=== PATIENT | female | born 1955 | race Caucasian/White ===

== ENCOUNTER 2017-06-22 11:52 | Inpatient (IN) ==
--- NOTE | 2017-06-22 12:18 | Emergency Department Note ---
Disposition Clinical Impression: Hypotension Qualifiers: Hypotension type: unspecified hypotension type Qualified Code(s): I95.9 - Hypotension, unspecified DKA (diabetic ketoacidoses) Qualifiers: Diabetes mellitus type: type 1 Diabetes mellitus complication detail: without coma Qualified Code(s): E10.10 - Type 1 diabetes mellitus with ketoacidosis without coma Disposition: Admitted As Inpatient Condition: Serious Referrals: Howard Boogie MD [Primary Care Provider] - Forms: ED Satisfaction Letter, Work/School Release General Adult HPI - General Chief complaint: ED General Medical Stated complaint: High Glucose, Low BP Time Seen by Provider: 06/22/17 11:57 Source: patient, EMS Limitations: no limitations Nursing Notes Reviewed: Yes Vital Signs Reviewed: Yes - History of Present Illness Pain Scale: 0 - Related Data Home Medications Medication Instructions Recorded Confirmed Insulin Glargine,Hum.rec.anlog 10 unit SQ DAILY 06/29/16 06/22/17 [Lantus Solostar] Insulin LISPRO [Humalog] 4 - 8 unit SQ TID PRN 06/29/16 06/22/17 LevETIRAcetam [Roweepra] 500 mg PO BID 06/29/16 06/22/17 Lisinopril [Zestril] 10 mg PO DAILY 06/29/16 06/22/17 Sennosides [Senna] 8.6 mg PO DAILY 06/29/16 06/22/17 Aspirin [Ecotrin] 325 mg PO DAILY 09/03/16 06/22/17 Cyclosporine [Restasis] 1 drop OP BID 09/03/16 06/22/17 Acetaminophen [Non-Aspirin] 650 mg PO Q6H PRN 06/22/17 06/22/17 Brimonidine 0.2% [Alphagan] 1 drop LEFT EYE TID 06/22/17 06/22/17 Citalopram Hydrobromide [Celexa] 40 mg PO DAILY 06/22/17 06/22/17 Docusate Sodium [Dok] 100 mg PO BID PRN 06/22/17 06/22/17 Dorzolamide [Trusopt] 1 drop BOTH EYES TID 06/22/17 06/22/17 Ergocalciferol (VITAMIN D2) 50,000 unit PO QWEEK 06/22/17 06/22/17 [Vitamin D2] Glucagon,Human Recombinant 1 mg IJ AD PRN 06/22/17 06/22/17 [Glucagen] Na Phos,M-B/Na Phos,Di-Ba [Fleet 230 ml RC Q48H PRN 06/22/17 06/22/17 Enema Extra] Polyvinyl Alcohol [Artificial 1 drop OP QID PRN 06/22/17 06/22/17 Tears] Previous Rx's Medication Instructions Recorded Folic Acid 1 mg PO DAILY #30 tablet 07/02/16 HYDROcodone/Acet 5/325 mg [Warwick 1 tab PO Q6H PRN #14 tablet 07/02/16 5-325 mg] Magnesium Oxide [Mag-Ox] 400 mg PO BID #60 tablet 07/02/16 Metoclopramide [Reglan] 10 mg PO QIDAC #30 tablet 07/02/16 Allergies Allergy/AdvReac Type Severity Reaction Status Date / Time No Known Allergies Allergy Verified 06/29/16 07:51 Past Medical History - Past Medical History Medical history: Reports: diabetes, hepatitis, hypertension, osteoporosis, renal disease, seizures, other Surgical history: Reports: cholecystectomy Psychiatric history: Reports: depression, schizophrenia - Social History Smoking Status: Current every day smoker Smokeless Tobacco Status: No Alcohol use: Reports: none Drug use: Reports: none Physical Exam - General Limitations: no limitations Course Vital Signs Temperature 97.9 F 06/22/17 11:55 Pulse Rate 89 06/22/17 11:55 Respiratory Rate 18 06/22/17 11:55 Blood Pressure 88/60 06/22/17 11:55 O2 Sat by Pulse Oximetry 93 06/22/17 11:55 Temperature 97.9 F 06/22/17 11:55 Pulse Rate 75 06/22/17 13:24 Respiratory Rate 16 06/22/17 13:24 Blood Pressure 113/65 06/22/17 13:24 O2 Sat by Pulse Oximetry 99 06/22/17 13:24 Oxygen Delivery Oxygen Delivery Room Air Medical Decision Making - MDM Narrative Medical decision making narrative: I examined this patient and my medical decision-making was reviewed with the Resident Physician. I agree with the documented findings, disposition and treatment plan as described except to the extent set forth below. Patient seen and evaluated by Dr. Kaplan, agree with his evaluation and management plan, supervise care the patient's stay. Patient notes her detention she is diabetic to history of GI bleeds or sugar was over 400 detention today and she has also been hypotensive. I placed an IV gave her fluids check her sugars and lab work and then reassess she most likely will need admission. Chest X-Ray 06/22/17 12:08 IMPRESSION: Clear lungs. No acute abnormality. Mild bullous changes. No significant change from the prior study. D/ / Joel Flynn MD / Joel Flynn MD Interpreting Provider: Joel Flynn MD Patient's labs come back she does appear a DKA was started on insulin drip. She still getting fluids. Her lactate is elevated. She does have elevated white count which could be due to her dehydration and also a acute phase reaction. She is started on Zosyn, blood cultures were done urinalysis is negative. Blood pressure is normalized. Her critical care time excluding any separately billable procedures is 45 minutes. - Lab Data Result diagrams: 06/22/17 12:21 06/22/17 12:21 Lab Results 06/22/17 06/22/17 06/22/17 Range/Units 11:58 11:59 12:21 WBC 15.5 H (4.3-11.1) K/mcL RBC 3.44 L (3.82-4.97) M/mcL Hgb 9.9 L (11.5-15.4) g/dL Hct 30.1 L (35.3-44.9) % MCV 87.5 (83.0-100.0) fL MCH 28.8 (28.0-33.3) pg MCHC 32.9 (31.6-35.5) g/dL RDW 12.9 (11.5-14.5) % Plt Count 380 (140-400) K/mcL MPV 9.5 (9.4-12.4) fL Immature Gran % 0.5 (0-4) % Seg Neutrophils % 86.2 % Lymphocytes % 8.7 % Monocytes % 3.6 % Eosinophils % 0.5 % Basophils % 0.5 % Neutrophils # 13.3 H (1.6-8.9) K/mcL Lymphocytes # 1.4 (0.6-4.6) K/mcL Monocytes # 0.6 (0.0-1.3) K/mcL Eosinophils # 0.1 (0.0-0.6) K/mcL Basophils # 0.1 (0.0-0.2) K/mcL VBG pH (7.32-7.42) pH Units VBG pCO2 (41-51) mmHg VBG pO2 (25-50) mmHg VBG HCO3 (21-27) mEq/L Sodium (136-145) mEq/L Potassium (3.5-4.5) mEq/L Chloride (98-109) mEq/L Carbon Dioxide (19-29) mEq/L BUN (7-20) mg/dL Creatinine (0.57-1.11) mg/dL Est GFR ( Amer) (> 60) Est GFR (Non-Af Amer) (> 60) BUN/Creatinine Ratio (6-26) Glucose (70-99) mg/dL POC Glucose > 600 H* 590 H* (58-89) Calculated Osmolality (280-300) Lactic Acid (0.5-2.2) mmol/L Calcium (8.6-10.8) mg/dL Total Bilirubin (0.2-1.2) mg/dL AST (5-34) Units/L ALT (0-55) Units/L Alkaline Phosphatase (38-126) Units/L Troponin I (0-0.03) ng/mL Serum Total Protein (6.0-8.3) g/dL Albumin (3.5-5.0) g/dL Globulin (2.4-3.5) g/dL Albumin/Globulin Ratio (1.1-2.2) Beta-Hydroxybutyric Acd (0.02-0.27) mmol/L Urine Color (Yellow) Urine Clarity (Clear) Urine pH (5.0-8.0) pH Units Ur Specific Jansen (1.010-1.025) Urine Protein (Neg-Trace) mg/dL Urine Glucose (UA) (Normal) mg/dL Urine Ketones (Negative) mg/dL Urine Blood (Negative) Urine Nitrite (Negative) Urine Bilirubin (Negative) Urine Urobilinogen (Normal) mg/dL Ur Leukocyte Esterase (Negative) Ur Culture Indicated? (NO) Stool Occult Blood (Negative) 06/22/17 06/22/17 06/22/17 Range/Units 12:21 12:21 12:24 WBC (4.3-11.1) K/mcL RBC (3.82-4.97) M/mcL Hgb (11.5-15.4) g/dL Hct (35.3-44.9) % MCV (83.0-100.0) fL MCH (28.0-33.3) pg MCHC (31.6-35.5) g/dL RDW (11.5-14.5) % Plt Count (140-400) K/mcL MPV (9.4-12.4) fL Immature Gran % (0-4) % Seg Neutrophils % % Lymphocytes % % Monocytes % % Eosinophils % % Basophils % % Neutrophils # (1.6-8.9) K/mcL Lymphocytes # (0.6-4.6) K/mcL Monocytes # (0.0-1.3) K/mcL Eosinophils # (0.0-0.6) K/mcL Basophils # (0.0-0.2) K/mcL VBG pH (7.32-7.42) pH Units VBG pCO2 (41-51) mmHg VBG pO2 (25-50) mmHg VBG HCO3 (21-27) mEq/L Sodium 127 L (136-145) mEq/L Potassium 4.3 (3.5-4.5) mEq/L Chloride 90 L (98-109) mEq/L Carbon Dioxide 21 (19-29) mEq/L BUN 24 H (7-20) mg/dL Creatinine 1.37 H (0.57-1.11) mg/dL Est GFR ( Amer) 48 L (> 60) Est GFR (Non-Af Amer) 39 L (> 60) BUN/Creatinine Ratio 18 (6-26) Glucose 630 H* (70-99) mg/dL POC Glucose (58-89) Calculated Osmolality 298 (280-300) Lactic Acid 3.9 H (0.5-2.2) mmol/L Calcium 9.8 (8.6-10.8) mg/dL Total Bilirubin 0.3 (0.2-1.2) mg/dL AST 18 (5-34) Units/L ALT 16 (0-55) Units/L Alkaline Phosphatase 124 (38-126) Units/L Troponin I 0.00 (0-0.03) ng/mL Serum Total Protein 7.2 (6.0-8.3) g/dL Albumin 3.4 L (3.5-5.0) g/dL Globulin 3.8 H (2.4-3.5) g/dL Albumin/Globulin Ratio 0.9 L (1.1-2.2) Beta-Hydroxybutyric Acd > 2.00 H (0.02-0.27) mmol/L Urine Color (Yellow) Urine Clarity (Clear) Urine pH (5.0-8.0) pH Units Ur Specific Jansen (1.010-1.025) Urine Protein (Neg-Trace) mg/dL Urine Glucose (UA) (Normal) mg/dL Urine Ketones (Negative) mg/dL Urine Blood (Negative) Urine Nitrite (Negative) Urine Bilirubin (Negative) Urine Urobilinogen (Normal) mg/dL Ur Leukocyte Esterase (Negative) Ur Culture Indicated? (NO) Stool Occult Blood (Negative) 06/22/17 06/22/17 06/22/17 Range/Units 12:39 12:54 13:24 WBC (4.3-11.1) K/mcL RBC (3.82-4.97) M/mcL Hgb (11.5-15.4) g/dL Hct (35.3-44.9) % MCV (83.0-100.0) fL MCH (28.0-33.3) pg MCHC (31.6-35.5) g/dL RDW (11.5-14.5) % Plt Count (140-400) K/mcL MPV (9.4-12.4) fL Immature Gran % (0-4) % Seg Neutrophils % % Lymphocytes % % Monocytes % % Eosinophils % % Basophils % % Neutrophils # (1.6-8.9) K/mcL Lymphocytes # (0.6-4.6) K/mcL Monocytes # (0.0-1.3) K/mcL Eosinophils # (0.0-0.6) K/mcL Basophils # (0.0-0.2) K/mcL VBG pH 7.33 (7.32-7.42) pH Units VBG pCO2 39 L (41-51) mmHg VBG pO2 48 (25-50) mmHg VBG HCO3 21 (21-27) mEq/L Sodium (136-145) mEq/L Potassium (3.5-4.5) mEq/L Chloride (98-109) mEq/L Carbon Dioxide (19-29) mEq/L BUN (7-20) mg/dL Creatinine (0.57-1.11) mg/dL Est GFR ( Amer) (> 60) Est GFR (Non-Af Amer) (> 60) BUN/Creatinine Ratio (6-26) Glucose (70-99) mg/dL POC Glucose (58-89) Calculated Osmolality (280-300) Lactic Acid (0.5-2.2) mmol/L Calcium (8.6-10.8) mg/dL Total Bilirubin (0.2-1.2) mg/dL AST (5-34) Units/L ALT (0-55) Units/L Alkaline Phosphatase (38-126) Units/L Troponin I (0-0.03) ng/mL Serum Total Protein (6.0-8.3) g/dL Albumin (3.5-5.0) g/dL Globulin (2.4-3.5) g/dL Albumin/Globulin Ratio (1.1-2.2) Beta-Hydroxybutyric Acd (0.02-0.27) mmol/L Urine Color Yellow (Yellow) Urine Clarity Clear (Clear) Urine pH 5.0 (5.0-8.0) pH Units Ur Specific Jansen 1.026 H (1.010-1.025) Urine Protein Negative (Neg-Trace) mg/dL Urine Glucose (UA) >=1000 H (Normal) mg/dL Urine Ketones 40 H (Negative) mg/dL Urine Blood Negative (Negative) Urine Nitrite Negative (Negative) Urine Bilirubin Negative (Negative) Urine Urobilinogen Normal (Normal) mg/dL Ur Leukocyte Esterase Negative (Negative) Ur Culture Indicated? NO (NO) Stool Occult Blood Negative (Negative) 06/22/17 Range/Units 13:24 WBC (4.3-11.1) K/mcL RBC (3.82-4.97) M/mcL Hgb (11.5-15.4) g/dL Hct (35.3-44.9) % MCV (83.0-100.0) fL MCH (28.0-33.3) pg MCHC (31.6-35.5) g/dL RDW (11.5-14.5) % Plt Count (140-400) K/mcL MPV (9.4-12.4) fL Immature Gran % (0-4) % Seg Neutrophils % % Lymphocytes % % Monocytes % % Eosinophils % % Basophils % % Neutrophils # (1.6-8.9) K/mcL Lymphocytes # (0.6-4.6) K/mcL Monocytes # (0.0-1.3) K/mcL Eosinophils # (0.0-0.6) K/mcL Basophils # (0.0-0.2) K/mcL VBG pH (7.32-7.42) pH Units VBG pCO2 (41-51) mmHg VBG pO2 (25-50) mmHg VBG HCO3 (21-27) mEq/L Sodium (136-145) mEq/L Potassium (3.5-4.5) mEq/L Chloride (98-109) mEq/L Carbon Dioxide (19-29) mEq/L BUN (7-20) mg/dL Creatinine (0.57-1.11) mg/dL Est GFR ( Amer) (> 60) Est GFR (Non-Af Amer) (> 60) BUN/Creatinine Ratio (6-26) Glucose (70-99) mg/dL POC Glucose 422 H* (58-89) Calculated Osmolality (280-300) Lactic Acid (0.5-2.2) mmol/L Calcium (8.6-10.8) mg/dL Total Bilirubin (0.2-1.2) mg/dL AST (5-34) Units/L ALT (0-55) Units/L Alkaline Phosphatase (38-126) Units/L Troponin I (0-0.03) ng/mL Serum Total Protein (6.0-8.3) g/dL Albumin (3.5-5.0) g/dL Globulin (2.4-3.5) g/dL Albumin/Globulin Ratio (1.1-2.2) Beta-Hydroxybutyric Acd (0.02-0.27) mmol/L Urine Color (Yellow) Urine Clarity (Clear) Urine pH (5.0-8.0) pH Units Ur Specific Jansen (1.010-1.025) Urine Protein (Neg-Trace) mg/dL Urine Glucose (UA) (Normal) mg/dL Urine Ketones (Negative) mg/dL Urine Blood (Negative) Urine Nitrite (Negative) Urine Bilirubin (Negative) Urine Urobilinogen (Normal) mg/dL Ur Leukocyte Esterase (Negative) Ur Culture Indicated? (NO) Stool Occult Blood (Negative)
--- NOTE | 2017-06-22 12:19 | Emergency Department Note ---
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 insulin use status Qualified Code(s): E11.65 - Type 2 diabetes mellitus with hyperglycemia Hypotension Qualifiers: Hypotension type: unspecified hypotension type Qualified Code(s): I95.9 - Hypotension, unspecified Disposition: Admitted As Inpatient Condition: Serious Referrals: Howard Boogie MD [Primary Care Provider] - Forms: ED Satisfaction Letter, Work/School Release Time of Disposition: 14:20 General Adult HPI - General Chief complaint: ED General Medical Stated complaint: High Glucose, Low BP Time Seen by Provider: 06/22/17 11:57 Source: patient, EMS Limitations: no limitations Nursing Notes Reviewed: Yes Vital Signs Reviewed: Yes - History of Present Illness HPI Narrative: 61-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 Patient denies any acute symptoms including headache, fevers, chills, sweats, chest pain, palpitations, shortness of air, nausea, vomiting, diarrhea, dysuria, or leg swelling. Patient does have history of gastrointestinal bleeding but, due to blindness cannot assess whether or not she has had any bloody or melanotic stools. SONIYA states blood pressures have been in the 80s systolic over 60s diastolic and blood sugars have been in the 500s. Pain Scale: 0 - Related Data Home Medications Medication Instructions Recorded Confirmed Insulin Glargine,Hum.rec.anlog 10 unit SQ DAILY 06/29/16 06/22/17 [Lantus Solostar] Insulin LISPRO [Humalog] 4 - 8 unit SQ TID PRN 06/29/16 06/22/17 LevETIRAcetam [Roweepra] 500 mg PO BID 06/29/16 06/22/17 Lisinopril [Zestril] 10 mg PO DAILY 06/29/16 06/22/17 Sennosides [Senna] 8.6 mg PO DAILY 06/29/16 06/22/17 Aspirin [Ecotrin] 325 mg PO DAILY 09/03/16 06/22/17 Cyclosporine [Restasis] 1 drop OP BID 09/03/16 06/22/17 Acetaminophen [Non-Aspirin] 650 mg PO Q6H PRN 06/22/17 06/22/17 Brimonidine 0.2% [Alphagan] 1 drop LEFT EYE TID 06/22/17 06/22/17 Citalopram Hydrobromide [Celexa] 40 mg PO DAILY 06/22/17 06/22/17 Docusate Sodium [Dok] 100 mg PO BID PRN 06/22/17 06/22/17 Dorzolamide [Trusopt] 1 drop BOTH EYES TID 06/22/17 06/22/17 Ergocalciferol (VITAMIN D2) 50,000 unit PO QWEEK 06/22/17 06/22/17 [Vitamin D2] Glucagon,Human Recombinant 1 mg IJ AD PRN 06/22/17 06/22/17 [Glucagen] Na Phos,M-B/Na Phos,Di-Ba [Fleet 230 ml RC Q48H PRN 06/22/17 06/22/17 Enema Extra] Polyvinyl Alcohol [Artificial 1 drop OP QID PRN 06/22/17 06/22/17 Tears] Previous Rx's Medication Instructions Recorded Folic Acid 1 mg PO DAILY #30 tablet 07/02/16 HYDROcodone/Acet 5/325 mg [[place] 1 tab PO Q6H PRN #14 tablet 07/02/16 5-325 mg] Magnesium Oxide [Mag-Ox] 400 mg PO BID #60 tablet 07/02/16 Metoclopramide [Reglan] 10 mg PO QIDAC #30 tablet 07/02/16 Allergies Allergy/AdvReac Type Severity Reaction Status Date / Time No Known Allergies Allergy Verified 06/29/16 07:51 Review of Systems: As Per HPI Past Medical History - Past Medical History Attestation: Yes The following information was validated with the patient. Medical history: Reports: diabetes, hepatitis, hypertension, osteoporosis, renal disease, seizures, other (History of gastrointestinal bleeding) Surgical history: Reports: cholecystectomy Psychiatric history: Reports: depression, schizophrenia - Social History Smoking Status: Current every day smoker Smokeless Tobacco Status: No Alcohol use: Reports: none Drug use: Reports: none Physical Exam - General Limitations: no limitations General appearance: alert, in no apparent distress - Head Head exam: normocephalic - Eye Eye exam: Present: other. Absent: scleral icterus, conjunctival injection - ENT ENT exam: mucous membranes moist - Neck Neck exam: Present: full ROM - Chest Chest inspection: Present: symmetric chest wall rise - Respiratory Respiratory exam: Present: normal lung sounds bilaterally. Absent: wheezes, stridor, accessory muscle use - Cardiovascular Cardiovascular exam: Present: regular rate, normal rhythm. Absent: systolic murmur, diastolic murmur, +S3, +S4 - Abdominal Exam Abdominal exam: Present: soft, Non-Tender - Rectal Exam Rib Chopper present during exam: Yes (KAVIN Davila) Rectal exam: Present: normal inspection, normal rectal tone, other (Scant stool ; no gross blood. Specimen to the lab.). Absent: fecal impaction, hemorrhoids , mass, tenderness - Extremities Exam Extremities exam: Present: normal inspection, other (Bilaterally symmetrical DP pulses 2+). Absent: pedal edema - Neurological Exam Neurological exam: Present: alert, oriented X3 - Psychiatric Psychiatric exam: Present: normal affect - Skin Skin exam: Present: warm, dry, intact, pallor. Absent: cyanosis, diaphoresis, mottled Course Course Narrative: Brittle diabetic with hyper glycemia and hypotension with no specific complaints. Ordered CBC, CMP, chest x-ray, blood cultures, lactate, UA, VBG, beta hydroxybutyrate, and occult stool blood. 2L NS bolus given. Will monitor blood pressures and FSBS. Moderate leukocytosis with left shift, elevated lactate, elevated serum glucose , hyponatremia likely pseudo due to hyperglycemia, elevated beta hydroxybutyrate , VBG negative for acidosis, negative occult blood stool, moderately anemic, mild YONATAN. Discussed with Dr. Johnson at approximately 1415 -- agrees to admit patient to ICU for ongoing assessment and stabilization. Vital Signs Temperature 97.9 F 06/22/17 11:55 Pulse Rate 89 06/22/17 11:55 Respiratory Rate 18 06/22/17 11:55 Blood Pressure 88/60 06/22/17 11:55 O2 Sat by Pulse Oximetry 93 06/22/17 11:55 Temperature 97.9 F 06/22/17 11:55 Pulse Rate 75 06/22/17 13:24 Respiratory Rate 16 06/22/17 13:24 Blood Pressure 113/65 06/22/17 13:24 O2 Sat by Pulse Oximetry 99 06/22/17 13:24 Oxygen Delivery Oxygen Delivery Room Air Medical Decision Making - MDM Narrative Medical decision making narrative: Patient is a brittle diabetic who presented to the ED today with market hypotension and market hyperglycemia. Blood pressures seem to be stabilizing with multiple IVF boluses; variety of lab abnormalities necessitates further monitoring, assessment, and stabilization at this time. Suspect underlying septic process though no source was elucidated in the ED; further investigation may be necessary on inpatient basis. Admitted to ICU under care of Dr. Johnson. - Lab Data Result diagrams: 06/22/17 12:21 06/22/17 12:21 Lab Results 06/22/17 06/22/17 06/22/17 Range/Units 11:58 11:59 12:21 WBC 15.5 H (4.3-11.1) K/mcL RBC 3.44 L (3.82-4.97) M/mcL Hgb 9.9 L (11.5-15.4) g/dL Hct 30.1 L (35.3-44.9) % MCV 87.5 (83.0-100.0) fL MCH 28.8 (28.0-33.3) pg MCHC 32.9 (31.6-35.5) g/dL RDW 12.9 (11.5-14.5) % Plt Count 380 (140-400) K/mcL MPV 9.5 (9.4-12.4) fL Immature Gran % 0.5 (0-4) % Seg Neutrophils % 86.2 % Lymphocytes % 8.7 % Monocytes % 3.6 % Eosinophils % 0.5 % Basophils % 0.5 % Neutrophils # 13.3 H (1.6-8.9) K/mcL Lymphocytes # 1.4 (0.6-4.6) K/mcL Monocytes # 0.6 (0.0-1.3) K/mcL Eosinophils # 0.1 (0.0-0.6) K/mcL Basophils # 0.1 (0.0-0.2) K/mcL VBG pH (7.32-7.42) pH Units VBG pCO2 (41-51) mmHg VBG pO2 (25-50) mmHg VBG HCO3 (21-27) mEq/L Sodium (136-145) mEq/L Potassium (3.5-4.5) mEq/L Chloride (98-109) mEq/L Carbon Dioxide (19-29) mEq/L BUN (7-20) mg/dL Creatinine (0.57-1.11) mg/dL Est GFR ( Amer) (> 60) Est GFR (Non-Af Amer) (> 60) BUN/Creatinine Ratio (6-26) Glucose (70-99) mg/dL POC Glucose > 600 H* 590 H* (58-89) Calculated Osmolality (280-300) Lactic Acid (0.5-2.2) mmol/L Calcium (8.6-10.8) mg/dL Total Bilirubin (0.2-1.2) mg/dL AST (5-34) Units/L ALT (0-55) Units/L Alkaline Phosphatase (38-126) Units/L Troponin I (0-0.03) ng/mL Serum Total Protein (6.0-8.3) g/dL Albumin (3.5-5.0) g/dL Globulin (2.4-3.5) g/dL Albumin/Globulin Ratio (1.1-2.2) Beta-Hydroxybutyric Acd (0.02-0.27) mmol/L Urine Color (Yellow) Urine Clarity (Clear) Urine pH (5.0-8.0) pH Units Ur Specific [place] (1.010-1.025) Urine Protein (Neg-Trace) mg/dL Urine Glucose (UA) (Normal) mg/dL Urine Ketones (Negative) mg/dL Urine Blood (Negative) Urine Nitrite (Negative) Urine Bilirubin (Negative) Urine Urobilinogen (Normal) mg/dL Ur Leukocyte Esterase (Negative) Ur Culture Indicated? (NO) Stool Occult Blood (Negative) 06/22/17 06/22/17 06/22/17 Range/Units 12:21 12:21 12:24 WBC (4.3-11.1) K/mcL RBC (3.82-4.97) M/mcL Hgb (11.5-15.4) g/dL Hct (35.3-44.9) % MCV (83.0-100.0) fL MCH (28.0-33.3) pg MCHC (31.6-35.5) g/dL RDW (11.5-14.5) % Plt Count (140-400) K/mcL MPV (9.4-12.4) fL Immature Gran % (0-4) % Seg Neutrophils % % Lymphocytes % % Monocytes % % Eosinophils % % Basophils % % Neutrophils # (1.6-8.9) K/mcL Lymphocytes # (0.6-4.6) K/mcL Monocytes # (0.0-1.3) K/mcL Eosinophils # (0.0-0.6) K/mcL Basophils # (0.0-0.2) K/mcL VBG pH (7.32-7.42) pH Units VBG pCO2 (41-51) mmHg VBG pO2 (25-50) mmHg VBG HCO3 (21-27) mEq/L Sodium 127 L (136-145) mEq/L Potassium 4.3 (3.5-4.5) mEq/L Chloride 90 L (98-109) mEq/L Carbon Dioxide 21 (19-29) mEq/L BUN 24 H (7-20) mg/dL Creatinine 1.37 H (0.57-1.11) mg/dL Est GFR ( Amer) 48 L (> 60) Est GFR (Non-Af Amer) 39 L (> 60) BUN/Creatinine Ratio 18 (6-26) Glucose 630 H* (70-99) mg/dL POC Glucose (58-89) Calculated Osmolality 298 (280-300) Lactic Acid 3.9 H (0.5-2.2) mmol/L Calcium 9.8 (8.6-10.8) mg/dL Total Bilirubin 0.3 (0.2-1.2) mg/dL AST 18 (5-34) Units/L ALT 16 (0-55) Units/L Alkaline Phosphatase 124 (38-126) Units/L Troponin I 0.00 (0-0.03) ng/mL Serum Total Protein 7.2 (6.0-8.3) g/dL Albumin 3.4 L (3.5-5.0) g/dL Globulin 3.8 H (2.4-3.5) g/dL Albumin/Globulin Ratio 0.9 L (1.1-2.2) Beta-Hydroxybutyric Acd > 2.00 H (0.02-0.27) mmol/L Urine Color (Yellow) Urine Clarity (Clear) Urine pH (5.0-8.0) pH Units Ur Specific [place] (1.010-1.025) Urine Protein (Neg-Trace) mg/dL Urine Glucose (UA) (Normal) mg/dL Urine Ketones (Negative) mg/dL Urine Blood (Negative) Urine Nitrite (Negative) Urine Bilirubin (Negative) Urine Urobilinogen (Normal) mg/dL Ur Leukocyte Esterase (Negative) Ur Culture Indicated? (NO) Stool Occult Blood (Negative) 06/22/17 06/22/17 06/22/17 Range/Units 12:39 12:54 13:24 WBC (4.3-11.1) K/mcL RBC (3.82-4.97) M/mcL Hgb (11.5-15.4) g/dL Hct (35.3-44.9) % MCV (83.0-100.0) fL MCH (28.0-33.3) pg MCHC (31.6-35.5) g/dL RDW (11.5-14.5) % Plt Count (140-400) K/mcL MPV (9.4-12.4) fL Immature Gran % (0-4) % Seg Neutrophils % % Lymphocytes % % Monocytes % % Eosinophils % % Basophils % % Neutrophils # (1.6-8.9) K/mcL Lymphocytes # (0.6-4.6) K/mcL Monocytes # (0.0-1.3) K/mcL Eosinophils # (0.0-0.6) K/mcL Basophils # (0.0-0.2) K/mcL VBG pH 7.33 (7.32-7.42) pH Units VBG pCO2 39 L (41-51) mmHg VBG pO2 48 (25-50) mmHg VBG HCO3 21 (21-27) mEq/L Sodium (136-145) mEq/L Potassium (3.5-4.5) mEq/L Chloride (98-109) mEq/L Carbon Dioxide (19-29) mEq/L BUN (7-20) mg/dL Creatinine (0.57-1.11) mg/dL Est GFR ( Amer) (> 60) Est GFR (Non-Af Amer) (> 60) BUN/Creatinine Ratio (6-26) Glucose (70-99) mg/dL POC Glucose (58-89) Calculated Osmolality (280-300) Lactic Acid (0.5-2.2) mmol/L Calcium (8.6-10.8) mg/dL Total Bilirubin (0.2-1.2) mg/dL AST (5-34) Units/L ALT (0-55) Units/L Alkaline Phosphatase (38-126) Units/L Troponin I (0-0.03) ng/mL Serum Total Protein (6.0-8.3) g/dL Albumin (3.5-5.0) g/dL Globulin (2.4-3.5) g/dL Albumin/Globulin Ratio (1.1-2.2) Beta-Hydroxybutyric Acd (0.02-0.27) mmol/L Urine Color Yellow (Yellow) Urine Clarity Clear (Clear) Urine pH 5.0 (5.0-8.0) pH Units Ur Specific [place] 1.026 H (1.010-1.025) Urine Protein Negative (Neg-Trace) mg/dL Urine Glucose (UA) >=1000 H (Normal) mg/dL Urine Ketones 40 H (Negative) mg/dL Urine Blood Negative (Negative) Urine Nitrite Negative (Negative) Urine Bilirubin Negative (Negative) Urine Urobilinogen Normal (Normal) mg/dL Ur Leukocyte Esterase Negative (Negative) Ur Culture Indicated? NO (NO) Stool Occult Blood Negative (Negative) 06/22/17 Range/Units 13:24 WBC (4.3-11.1) K/mcL RBC (3.82-4.97) M/mcL Hgb (11.5-15.4) g/dL Hct (35.3-44.9) % MCV (83.0-100.0) fL MCH (28.0-33.3) pg MCHC (31.6-35.5) g/dL RDW (11.5-14.5) % Plt Count (140-400) K/mcL MPV (9.4-12.4) fL Immature Gran % (0-4) % Seg Neutrophils % % Lymphocytes % % Monocytes % % Eosinophils % % Basophils % % Neutrophils # (1.6-8.9) K/mcL Lymphocytes # (0.6-4.6) K/mcL Monocytes # (0.0-1.3) K/mcL Eosinophils # (0.0-0.6) K/mcL Basophils # (0.0-0.2) K/mcL VBG pH (7.32-7.42) pH Units VBG pCO2 (41-51) mmHg VBG pO2 (25-50) mmHg VBG HCO3 (21-27) mEq/L Sodium (136-145) mEq/L Potassium (3.5-4.5) mEq/L Chloride (98-109) mEq/L Carbon Dioxide (19-29) mEq/L BUN (7-20) mg/dL Creatinine (0.57-1.11) mg/dL Est GFR ( Amer) (> 60) Est GFR (Non-Af Amer) (> 60) BUN/Creatinine Ratio (6-26) Glucose (70-99) mg/dL POC Glucose 422 H* (58-89) Calculated Osmolality (280-300) Lactic Acid (0.5-2.2) mmol/L Calcium (8.6-10.8) mg/dL Total Bilirubin (0.2-1.2) mg/dL AST (5-34) Units/L ALT (0-55) Units/L Alkaline Phosphatase (38-126) Units/L Troponin I (0-0.03) ng/mL Serum Total Protein (6.0-8.3) g/dL Albumin (3.5-5.0) g/dL Globulin (2.4-3.5) g/dL Albumin/Globulin Ratio (1.1-2.2) Beta-Hydroxybutyric Acd (0.02-0.27) mmol/L Urine Color (Yellow) Urine Clarity (Clear) Urine pH (5.0-8.0) pH Units Ur Specific [place] (1.010-1.025) Urine Protein (Neg-Trace) mg/dL Urine Glucose (UA) (Normal) mg/dL Urine Ketones (Negative) mg/dL Urine Blood (Negative) Urine Nitrite (Negative) Urine Bilirubin (Negative) Urine Urobilinogen (Normal) mg/dL Ur Leukocyte Esterase (Negative) Ur Culture Indicated? (NO) Stool Occult Blood (Negative)
[2017-06-22] MEDS: 0.9 % Sodium Chloride 1,000 ML IVC SCH ×5 (12:25→20:37)
[2017-06-22 12:31] LABS: Basophils # 0.1 K/mcL (0.0-0.2); Basophils % 0.5 %; Eosinophils # 0.1 K/mcL (0.0-0.6); Eosinophils % 0.5 %; Hematocrit 30.1 % (35.3-44.9); Hemoglobin 9.9 g/dL (11.5-15.4); Immature Granulocytes % 0.5 % (0-4); Lymphocytes # 1.4 K/mcL (0.6-4.6); Lymphocytes % 8.7 %; Mean Corpuscular HGB Conc 32.9 g/dL (31.6-35.5); Mean Corpuscular Hemoglobin 28.8 pg (28.0-33.3); Mean Corpuscular Volume 87.5 fL (83.0-100.0); Mean Platelet Volume 9.5 fL (9.4-12.4); Monocytes # 0.6 K/mcL (0.0-1.3); Monocytes % 3.6 %; Neutrophils # 13.3 K/mcL (1.6-8.9); Platelet Count 380 K/mcL (140-400); Red Blood Count 3.44 M/mcL (3.82-4.97); Red Cell Distribution Width 12.9 % (11.5-14.5); Segmented Neutrophils % 86.2 %
[2017-06-22 12:42] LABS: VBG HCO3 21 mEq/L (21-27); VBG PCO2 39 mmHg (41-51); VBG PH 7.33 pH Units (7.32-7.42); VBG PO2 48 mmHg (25-50)
[2017-06-22 12:44] LABS: Alanine Aminotransferase 16 Units/L (0-55); Albumin 3.4 g/dL (3.5-5.0); Albumin/Globulin Ratio 0.9 (1.1-2.2); Alkaline Phosphatase 124 Units/L (38-126); Aspartate Amino Transferase 18 Units/L (5-34); BUN/Creatinine Ratio 18 (6-26); Bilirubin,Total 0.3 mg/dL (0.2-1.2); Blood Urea Nitrogen 24 mg/dL (7-20); Calcium 9.8 mg/dL (8.6-10.8); Carbon Dioxide 21 mEq/L (19-29); Chloride 90 mEq/L (98-109); Globulin 3.8 g/dL (2.4-3.5); Osmolality,Calculated 298 (280-300); Potassium 4.3 mEq/L (3.5-4.5); Sodium 127 mEq/L (136-145); Total Protein 7.2 g/dL (6.0-8.3); eGFR For African Americans 48 (> 60); eGFR For Non-African Americans 39 (> 60)
[2017-06-22 12:48] LABS: Glucose 630 mg/dL (70-99)
[2017-06-22 13:01] LABS: Beta-Hydroxybutyric Acid > 2.00 mmol/L (0.02-0.27)
[2017-06-22] MEDS ORDERED: Insulin Human Regular 100 UNIT in 0.9 % Sodium Chloride 100 ML IVC SCH (13:15)
[2017-06-22] MEDS ORDERED: Piperacillin/Tazobactam 3.375 GM in D5% in Water (Mini-Bag+) 100 ML IVPB ONE (13:23)
[2017-06-22 13:30] LABS: Bilirubin,Urine Negative (Negative); Blood,Urine Negative (Negative); Clarity,Urine Clear (Clear); Color,Urine Yellow (Yellow); Glucose,Urine (UA) >=1000 mg/dL (Normal); Ketones,Urine 40 mg/dL (Negative); Leukocyte Esterase,Urine Negative (Negative); Nitrite,Urine Negative (Negative); Protein,Urine Negative (Neg-Trace); Specific Gravity,Urine 1.026 (1.010-1.025); Urobilinogen,Urine Normal (Normal)
--- NOTE | 2017-06-22 14:37 | Event Note ---
Date of Encounter: 06/22/17 Time of Encounter: 14:35 Patient seen and examined with nurse practitioner. Hyperglycemic hyperosmolar state and acute kidney injury. Patient has leukocytosis, elevated lactic acid to 3.9, and hypotension improving with fluids. I do not see an apparent source of infection. Urine analysis and chest x-ray are unremarkable. Abdominal exam is benign. Will hold off antibiotics. She is full code
[2017-06-22] MEDS ORDERED: *HR* Dextrose 50 % in Water (Syg) 50 ML SYRINGE IVP PRN ×2 (14:39→18:30)
[2017-06-22] MEDS ORDERED: Insulin Regular, Human 100 UNIT/ML IV PRN (14:39)
[2017-06-22] MEDS ORDERED: 0.45 % Sodium Chloride w/KCl 20 MEQ/1,000 ML MLS IVC SCH (14:45)
[2017-06-22] MEDS ORDERED: Naloxone 0.4 MG/ML INJ IVP PRN (15:00)
[2017-06-22] MEDS ORDERED: Acetaminophen 325 MG TABLET PO PRN (15:00)
[2017-06-22] MEDS ORDERED: Ondansetron 4 MG/2 ML VIAL IVP PRN (15:00)
[2017-06-22] MEDS ORDERED: *HR* HYDROcodone/Acet 5/325 mg TABLET PO PRN (15:04)
--- NOTE | 2017-06-22 15:20 | Internal Med History&Physical ---
Date of Encounter: 06/22/17 Time of Encounter: 15:09 Assessment and Plan (1) Hyperosmolar non-ketotic state in patient with type 2 diabetes mellitus Current visit: Yes Status: Acute Patient presented with blood sugar 630, anion gap 16, urine positive for Ketones and beta-hydroxybutyric acid was greater than 2.00. She was not, however, acidotic on VBG and therefore we will categorize her as Hyperglycemic, hypoosomolar state. Lactate was elevated to 3.9. She was given 2L of fluid in Ed and started on an insulin drip. Continue fluids with 0.9NS at 125mL/hr. Check blood sugars Qhr and bolus dose insulin per protocol Check VBG, chemistry and beta hydroxybutyric acid Q4hr. Stop insulin drip once gap is closed, blood sugar < 250 and patient can tolerate PO. Will give long acting insulin 2 hrs prior to stopping drip. (2) Hypotension Current visit: Yes Status: Acute Patient was initially hypotensive with blood pressures 80s/50s. Likely secondary to dehydration in her hyperglycemic, hypo-osmolar state. Blood pressure improved to 110s/60s after fluid resuscitation. Hold home anti- hypertensives. Check VS Q4hr. Qualifiers: Hypotension type: unspecified hypotension type Qualified Code(s): I95.9 - Hypotension, unspecified (3) Acute kidney injury Current visit: Yes Status: Acute Creatinine of 1.37 is up from previously normal values. Likely secondary to dehyration in her HHS state. Aggressively hydrating. Checking chemistry Q4hr as per DKA/HHS protocol. UA negative for infection. (4) DVT prophylaxis Current visit: Yes Status: Acute sequential compression devices Patient had significant GI bleed last year so holding off on pharmacologic prophylaxis. 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 Moreno is a 61 year old female with type 1 diabetes, hypertension, chronic kidney disease, schizophrenia, seizure disorder, history of GI bleed was sent to the emergency department today from her long-term care facility with hypotension and elevated blood sugar. Patient has no complaints at this time, does report that she was feeling a little lightheaded prior to coming into the hospital. She denies chest pain, palpitations, shortness breath, cough, fever, chills, sweats, nausea, vomiting, abdominal pain, diarrhea. Evaluation in the emergency department revealed hyperglycemic hypo-osmolar state with blood sugar of 630, anion gap of 16, lactate of 3.9. UA was positive for ketones and beta hydroxybutyric acid was greater than 2. Patient was not acidotic on venous blood gas. WBC count was elevated, but patient was afebrile. UA was not consistent with infection and CXR showed no acute abnormality. She had mild YONATAN with Creatinine of 1.37. She was hypotensive on presentation with blood pressures 80s/50s, but this improved to 110s/60s after fluids. On exam, patient is alert and oriented, in no distress. Heart has regular rate and rhythm, lungs are clear to auscultation bilaterally, abdomen is soft, non- tender. No peripheral edema. Past Med Surg Social Fam HX - Past Medical History Medical history: diabetes, hepatitis, hypertension, osteoporosis, renal disease , seizures, other Psychiatric history: depression, schizophrenia - Past Surgical History Surgical History: cholecystectomy - Social History Smoking Status: Current every day smoker Smokeless Tobacco Status: No Alcohol use: none Drug use: none Internal Medicine - H&P: Meds Insulin Glargine,Hum.rec.anlog [Lantus Solostar] 10 unit SQ DAILY 06/29/16 [ History] Insulin LISPRO [Humalog] 4 - 8 unit SQ TID PRN 06/29/16 [History] LevETIRAcetam [Roweepra] 500 mg PO BID 06/29/16 [History] Lisinopril [Zestril] 10 mg PO DAILY 06/29/16 [History] Sennosides [Senna] 8.6 mg PO DAILY 06/29/16 [History] Folic Acid 1 mg PO DAILY #30 tablet 07/02/16 [Rx] HYDROcodone/Acet 5/325 mg [[place] 5-325 mg] 1 tab PO Q6H PRN #14 tablet 07/02/16 [Rx] Magnesium Oxide [Mag-Ox] 400 mg PO BID #60 tablet 07/02/16 [Rx] Metoclopramide [Reglan] 10 mg PO QIDAC #30 tablet 07/02/16 [Rx] Aspirin [Ecotrin] 325 mg PO DAILY 09/03/16 [History] Cyclosporine [Restasis] 1 drop OP BID 09/03/16 [History] Acetaminophen [Non-Aspirin] 650 mg PO Q6H PRN 06/22/17 [History] Brimonidine 0.2% [Alphagan] 1 drop LEFT EYE TID 06/22/17 [History] Citalopram Hydrobromide [Celexa] 40 mg PO DAILY 06/22/17 [History] Docusate Sodium [Dok] 100 mg PO BID PRN 06/22/17 [History] Dorzolamide [Trusopt] 1 drop BOTH EYES TID 06/22/17 [History] Ergocalciferol (VITAMIN D2) [Vitamin D2] 50,000 unit PO QWEEK 06/22/17 [History] Glucagon,Human Recombinant [Glucagen] 1 mg IJ AD PRN 06/22/17 [History] Na Phos,M-B/Na Phos,Di-Ba [Fleet Enema Extra] 230 ml RC Q48H PRN 06/22/17 [ History] Polyvinyl Alcohol [Artificial Tears] 1 drop OP QID PRN 06/22/17 [History] 3 Allergy/AdvReac Type Severity Reaction Status Date / Time No Known Allergies Allergy Verified 06/29/16 07:51 All Systems PM: A 10-system review of systems was performed and is negative for pertinent findings except as documented above in the HPI. - Constitutional Constitutional: no chills, no fever(s), no night sweats - EENT Eyes: no change in vision, no discharge, no pain, no photophobia Ears: no ear discharge, no ear pain, no tinnitus Nose, mouth and throat: no dysphagia, no nasal discharge, no neck pain, no sore throat - Cardiovascular Cardiovascular ROS IM: lightheadedness, no chest pain, no diaphoresis, no dyspnea, no palpitations, no syncope - Respiratory Respiratory: no cough, no dyspnea, no wheezing, no excessive phlegm production - Gastrointestinal Gastrointestinal: no abdominal pain, no diarrhea, no hematemesis, no hematochezia, no melena, no nausea, no vomiting - Genitourinary Genitourinary: no change in urinary stream, no dysuria, no flank pain, no hematuria - Musculoskeletal Musculoskeletal ROS IM: no numbness, no tingling - Integumentary Integumentary IM: no rash, no unusual bruising - Neurological Neurological ROS: no confusion, no convulsions, no focal weakness, no numbness, no tingling, no tremor(s) - Hematologic/Lymphatic Hematologic/Lymphatic: no easy bruising - Constitutional Vitals: Temp Pulse Resp BP Pulse Ox 97.9 F 75 16 114/56 99 06/22/17 11:55 06/22/17 13:24 06/22/17 14:21 06/22/17 14:21 06/22/17 13:24 General appearance: Present: A&O X 3, pleasant, no acute distress - Head Head exam: Present: atraumatic, normocephalic - Eye Eye exam: Present: PERRL, conjuntiva pink, sclera anicteric Pupils: Present: PERRL - Neck Neck exam general surgery: Present: supple, trachea midline. Absent: lymphadenopathy - Respiratory Respiratory exam: Present: CTAB. Absent: accessory muscle use, rales, rhonchi, wheezes - Cardiovascular Cardiovascular exam: Present: RRR, +S1, +S2. Absent: diastolic murmur, gallop, rubs, systolic murmur - GI/Abdominal GI/Abdominal exam: Present: normal bowel sounds, soft, no peritoneal signs. Absent: distended, tenderness - Extremities Exam Extremities exam: Present: warm, radial pulses palpable and symmetrical. Absent : calf tenderness, cyanotic, pedal edema - Neurological Exam Neurological exam: Present: CN II-XII intact, oriented X3, no focal deficits. Absent: pronater drift, facial droop, speech deficit - Skin Skin exam: Present: dry, intact Internal Med - H&P Results - Labs CBC & Chem 7: 06/22/17 12:21 06/22/17 12:21 Labs: All Lab Results (24 Hours) 06/22/17 06/22/17 06/22/17 Range/Units 11:58 11:59 12:21 WBC 15.5 H (4.3-11.1) K/mcL RBC 3.44 L (3.82-4.97) M/mcL Hgb 9.9 L (11.5-15.4) g/dL Hct 30.1 L (35.3-44.9) % MCV 87.5 (83.0-100.0) fL MCH 28.8 (28.0-33.3) pg MCHC 32.9 (31.6-35.5) g/dL RDW 12.9 (11.5-14.5) % Plt Count 380 (140-400) K/mcL MPV 9.5 (9.4-12.4) fL Immature Gran % 0.5 (0-4) % Seg Neutrophils % 86.2 % Lymphocytes % 8.7 % Monocytes % 3.6 % Eosinophils % 0.5 % Basophils % 0.5 % Neutrophils # 13.3 H (1.6-8.9) K/mcL Lymphocytes # 1.4 (0.6-4.6) K/mcL Monocytes # 0.6 (0.0-1.3) K/mcL Eosinophils # 0.1 (0.0-0.6) K/mcL Basophils # 0.1 (0.0-0.2) K/mcL VBG pH (7.32-7.42) pH Units VBG pCO2 (41-51) mmHg VBG pO2 (25-50) mmHg VBG HCO3 (21-27) mEq/L Sodium (136-145) mEq/L Potassium (3.5-4.5) mEq/L Chloride (98-109) mEq/L Carbon Dioxide (19-29) mEq/L BUN (7-20) mg/dL Creatinine (0.57-1.11) mg/dL Est GFR ( Amer) (> 60) Est GFR (Non-Af Amer) (> 60) BUN/Creatinine Ratio (6-26) Glucose (70-99) mg/dL POC Glucose > 600 H* 590 H* (58-89) Calculated Osmolality (280-300) Lactic Acid (0.5-2.2) mmol/L Calcium (8.6-10.8) mg/dL Total Bilirubin (0.2-1.2) mg/dL AST (5-34) Units/L ALT (0-55) Units/L Alkaline Phosphatase (38-126) Units/L Troponin I (0-0.03) ng/mL Serum Total Protein (6.0-8.3) g/dL Albumin (3.5-5.0) g/dL Globulin (2.4-3.5) g/dL Albumin/Globulin Ratio (1.1-2.2) Beta-Hydroxybutyric Acd (0.02-0.27) mmol/L Urine Color (Yellow) Urine Clarity (Clear) Urine pH (5.0-8.0) pH Units Ur Specific [place] (1.010-1.025) Urine Protein (Neg-Trace) mg/dL Urine Glucose (UA) (Normal) mg/dL Urine Ketones (Negative) mg/dL Urine Blood (Negative) Urine Nitrite (Negative) Urine Bilirubin (Negative) Urine Urobilinogen (Normal) mg/dL Ur Leukocyte Esterase (Negative) Ur Culture Indicated? (NO) Stool Occult Blood (Negative) 06/22/17 06/22/17 06/22/17 Range/Units 12:21 12:21 12:24 WBC (4.3-11.1) K/mcL RBC (3.82-4.97) M/mcL Hgb (11.5-15.4) g/dL Hct (35.3-44.9) % MCV (83.0-100.0) fL MCH (28.0-33.3) pg MCHC (31.6-35.5) g/dL RDW (11.5-14.5) % Plt Count (140-400) K/mcL MPV (9.4-12.4) fL Immature Gran % (0-4) % Seg Neutrophils % % Lymphocytes % % Monocytes % % Eosinophils % % Basophils % % Neutrophils # (1.6-8.9) K/mcL Lymphocytes # (0.6-4.6) K/mcL Monocytes # (0.0-1.3) K/mcL Eosinophils # (0.0-0.6) K/mcL Basophils # (0.0-0.2) K/mcL VBG pH (7.32-7.42) pH Units VBG pCO2 (41-51) mmHg VBG pO2 (25-50) mmHg VBG HCO3 (21-27) mEq/L Sodium 127 L (136-145) mEq/L Potassium 4.3 (3.5-4.5) mEq/L Chloride 90 L (98-109) mEq/L Carbon Dioxide 21 (19-29) mEq/L BUN 24 H (7-20) mg/dL Creatinine 1.37 H (0.57-1.11) mg/dL Est GFR ( Amer) 48 L (> 60) Est GFR (Non-Af Amer) 39 L (> 60) BUN/Creatinine Ratio 18 (6-26) Glucose 630 H* (70-99) mg/dL POC Glucose (58-89) Calculated Osmolality 298 (280-300) Lactic Acid 3.9 H (0.5-2.2) mmol/L Calcium 9.8 (8.6-10.8) mg/dL Total Bilirubin 0.3 (0.2-1.2) mg/dL AST 18 (5-34) Units/L ALT 16 (0-55) Units/L Alkaline Phosphatase 124 (38-126) Units/L Troponin I 0.00 (0-0.03) ng/mL Serum Total Protein 7.2 (6.0-8.3) g/dL Albumin 3.4 L (3.5-5.0) g/dL Globulin 3.8 H (2.4-3.5) g/dL Albumin/Globulin Ratio 0.9 L (1.1-2.2) Beta-Hydroxybutyric Acd > 2.00 H (0.02-0.27) mmol/L Urine Color (Yellow) Urine Clarity (Clear) Urine pH (5.0-8.0) pH Units Ur Specific [place] (1.010-1.025) Urine Protein (Neg-Trace) mg/dL Urine Glucose (UA) (Normal) mg/dL Urine Ketones (Negative) mg/dL Urine Blood (Negative) Urine Nitrite (Negative) Urine Bilirubin (Negative) Urine Urobilinogen (Normal) mg/dL Ur Leukocyte Esterase (Negative) Ur Culture Indicated? (NO) Stool Occult Blood (Negative) 06/22/17 06/22/17 06/22/17 Range/Units 12:39 12:54 13:24 WBC (4.3-11.1) K/mcL RBC (3.82-4.97) M/mcL Hgb (11.5-15.4) g/dL Hct (35.3-44.9) % MCV (83.0-100.0) fL MCH (28.0-33.3) pg MCHC (31.6-35.5) g/dL RDW (11.5-14.5) % Plt Count (140-400) K/mcL MPV (9.4-12.4) fL Immature Gran % (0-4) % Seg Neutrophils % % Lymphocytes % % Monocytes % % Eosinophils % % Basophils % % Neutrophils # (1.6-8.9) K/mcL Lymphocytes # (0.6-4.6) K/mcL Monocytes # (0.0-1.3) K/mcL Eosinophils # (0.0-0.6) K/mcL Basophils # (0.0-0.2) K/mcL VBG pH 7.33 (7.32-7.42) pH Units VBG pCO2 39 L (41-51) mmHg VBG pO2 48 (25-50) mmHg VBG HCO3 21 (21-27) mEq/L Sodium (136-145) mEq/L Potassium (3.5-4.5) mEq/L Chloride (98-109) mEq/L Carbon Dioxide (19-29) mEq/L BUN (7-20) mg/dL Creatinine (0.57-1.11) mg/dL Est GFR ( Amer) (> 60) Est GFR (Non-Af Amer) (> 60) BUN/Creatinine Ratio (6-26) Glucose (70-99) mg/dL POC Glucose (58-89) Calculated Osmolality (280-300) Lactic Acid (0.5-2.2) mmol/L Calcium (8.6-10.8) mg/dL Total Bilirubin (0.2-1.2) mg/dL AST (5-34) Units/L ALT (0-55) Units/L Alkaline Phosphatase (38-126) Units/L Troponin I (0-0.03) ng/mL Serum Total Protein (6.0-8.3) g/dL Albumin (3.5-5.0) g/dL Globulin (2.4-3.5) g/dL Albumin/Globulin Ratio (1.1-2.2) Beta-Hydroxybutyric Acd (0.02-0.27) mmol/L Urine Color Yellow (Yellow) Urine Clarity Clear (Clear) Urine pH 5.0 (5.0-8.0) pH Units Ur Specific [place] 1.026 H (1.010-1.025) Urine Protein Negative (Neg-Trace) mg/dL Urine Glucose (UA) >=1000 H (Normal) mg/dL Urine Ketones 40 H (Negative) mg/dL Urine Blood Negative (Negative) Urine Nitrite Negative (Negative) Urine Bilirubin Negative (Negative) Urine Urobilinogen Normal (Normal) mg/dL Ur Leukocyte Esterase Negative (Negative) Ur Culture Indicated? NO (NO) Stool Occult Blood Negative (Negative) 06/22/17 06/22/17 06/22/17 Range/Units 13:24 13:45 14:40 WBC (4.3-11.1) K/mcL RBC (3.82-4.97) M/mcL Hgb (11.5-15.4) g/dL Hct (35.3-44.9) % MCV (83.0-100.0) fL MCH (28.0-33.3) pg MCHC (31.6-35.5) g/dL RDW (11.5-14.5) % Plt Count (140-400) K/mcL MPV (9.4-12.4) fL Immature Gran % (0-4) % Seg Neutrophils % % Lymphocytes % % Monocytes % % Eosinophils % % Basophils % % Neutrophils # (1.6-8.9) K/mcL Lymphocytes # (0.6-4.6) K/mcL Monocytes # (0.0-1.3) K/mcL Eosinophils # (0.0-0.6) K/mcL Basophils # (0.0-0.2) K/mcL VBG pH (7.32-7.42) pH Units VBG pCO2 (41-51) mmHg VBG pO2 (25-50) mmHg VBG HCO3 (21-27) mEq/L Sodium (136-145) mEq/L Potassium (3.5-4.5) mEq/L Chloride (98-109) mEq/L Carbon Dioxide (19-29) mEq/L BUN (7-20) mg/dL Creatinine (0.57-1.11) mg/dL Est GFR ( Amer) (> 60) Est GFR (Non-Af Amer) (> 60) BUN/Creatinine Ratio (6-26) Glucose (70-99) mg/dL POC Glucose 422 H* 341 H (58-89) Calculated Osmolality (280-300) Lactic Acid 3.6 H (0.5-2.2) mmol/L Calcium (8.6-10.8) mg/dL Total Bilirubin (0.2-1.2) mg/dL AST (5-34) Units/L ALT (0-55) Units/L Alkaline Phosphatase (38-126) Units/L Troponin I (0-0.03) ng/mL Serum Total Protein (6.0-8.3) g/dL Albumin (3.5-5.0) g/dL Globulin (2.4-3.5) g/dL Albumin/Globulin Ratio (1.1-2.2) Beta-Hydroxybutyric Acd (0.02-0.27) mmol/L Urine Color (Yellow) Urine Clarity (Clear) Urine pH (5.0-8.0) pH Units Ur Specific [place] (1.010-1.025) Urine Protein (Neg-Trace) mg/dL Urine Glucose (UA) (Normal) mg/dL Urine Ketones (Negative) mg/dL Urine Blood (Negative) Urine Nitrite (Negative) Urine Bilirubin (Negative) Urine Urobilinogen (Normal) mg/dL Ur Leukocyte Esterase (Negative) Ur Culture Indicated? (NO) Stool Occult Blood (Negative) - Diagnostic Studies Chest x-ray Additional comments: Chest X-Ray 06/22/17 12:08 IMPRESSION: Clear lungs. No acute abnormality. Mild bullous changes. No significant change from the prior study. D/ / Joel Flynn MD / Joel Flynn MD Interpreting Provider: Joel Flynn MD
[2017-06-22 15:40] LABS: VBG HCO3 24 mEq/L (21-27); VBG PCO2 48 mmHg (41-51); VBG PH 7.31 pH Units (7.32-7.42); VBG PO2 33 mmHg (25-50)
[2017-06-22 15:46] LABS: VBG HCO3 24 mEq/L (21-27); VBG PCO2 48 mmHg (41-51); VBG PH 7.31 pH Units (7.32-7.42); VBG PO2 33 mmHg (25-50)
[2017-06-22 17:58] LABS: BUN/Creatinine Ratio 22 (6-26); Blood Urea Nitrogen 17 mg/dL (7-20); Calcium 8.5 mg/dL (8.6-10.8); Carbon Dioxide 24 mEq/L (19-29); Chloride 102 mEq/L (98-109); Glucose 114 mg/dL (70-99); Osmolality,Calculated 282 (280-300); Potassium 3.5 mEq/L (3.5-4.5); eGFR For African Americans > 60 (> 60); eGFR For Non-African Americans > 60 (> 60)
[2017-06-22 17:59] LABS: Sodium 135 mEq/L (136-145)
[2017-06-22 18:11] LABS: VBG HCO3 27 mEq/L (21-27); VBG PCO2 48 mmHg (41-51); VBG PH 7.35 pH Units (7.32-7.42); VBG PO2 66 mmHg (25-50)
[2017-06-22 18:18] LABS: VBG HCO3 25 mEq/L (21-27); VBG PCO2 45 mmHg (41-51); VBG PH 7.36 pH Units (7.32-7.42); VBG PO2 75 mmHg (25-50)
[2017-06-22] MEDS ORDERED: D5% in Water 1,000 ML IVC PRN (18:30)
[2017-06-22] MEDS ORDERED: Insulin DETEMIR 100 UNIT/ML X5UNITS SQ STA (18:30)
[2017-06-22] MEDS ORDERED: Dextrose Gel 15 GM PO PRN ×2 (18:30)
[2017-06-22] MEDS: (Cyclosporine [Restasis] 1 DROP) OP SCH (20:39)
[2017-06-22] MEDS: Magnesium Oxide 400 MG TABLET PO SCH (20:41)
[2017-06-22] MEDS: levETIRAcetam 250 MG TABLET PO SCH (20:42)
[2017-06-22] MEDS: Dorzolamide OPTH 10 ML BOTTLE BOTH EYES SCH (20:45)
[2017-06-22] MEDS: Insulin LISPRO 300 UNITS/3 ML VIAL SQ SCH ×2 (20:46→23:47)
[2017-06-22 23:09] LABS: VBG HCO3 24 mEq/L (21-27); VBG PCO2 47 mmHg (41-51); VBG PH 7.31 pH Units (7.32-7.42); VBG PO2 63 mmHg (25-50)
[2017-06-22 23:11] LABS: BUN/Creatinine Ratio 18 (6-26); Blood Urea Nitrogen 13 mg/dL (7-20); Carbon Dioxide 22 mEq/L (19-29); Chloride 106 mEq/L (98-109); Glucose 100 mg/dL (70-99); Osmolality,Calculated 280 (280-300); Potassium 3.3 mEq/L (3.5-4.5); Sodium 135 mEq/L (136-145); eGFR For African Americans > 60 (> 60); eGFR For Non-African Americans > 60 (> 60)
[2017-06-23] MEDS: 0.9 % Sodium Chloride 1,000 ML IVC SCH (01:08)
[2017-06-23] MEDS: Insulin LISPRO 300 UNITS/3 ML VIAL SQ SCH ×4 (04:26→17:30)
[2017-06-23 06:06] LABS: VBG HCO3 20 mEq/L (21-27); VBG PCO2 48 mmHg (41-51); VBG PH 7.22 pH Units (7.32-7.42); VBG PO2 50 mmHg (25-50)
[2017-06-23 06:13] LABS: Basophils # 0.1 K/mcL (0.0-0.2); Basophils % 0.6 %; Eosinophils # 0.1 K/mcL (0.0-0.6); Eosinophils % 0.5 %; Hematocrit 25.4 % (35.3-44.9); Immature Granulocytes % 0.6 % (0-4); Lymphocytes # 1.9 K/mcL (0.6-4.6); Mean Corpuscular HGB Conc 31.9 g/dL (31.6-35.5); Mean Corpuscular Hemoglobin 28.5 pg (28.0-33.3); Mean Corpuscular Volume 89.4 fL (83.0-100.0); Mean Platelet Volume 9.6 fL (9.4-12.4); Monocytes # 0.7 K/mcL (0.0-1.3); Monocytes % 6.6 %; Neutrophils # 8.1 K/mcL (1.6-8.9); Platelet Count 309 K/mcL (140-400); Red Blood Count 2.84 M/mcL (3.82-4.97); Red Cell Distribution Width 13.2 % (11.5-14.5); Segmented Neutrophils % 74.7 %
[2017-06-23 06:14] LABS: BUN/Creatinine Ratio 13 (6-26); Blood Urea Nitrogen 10 mg/dL (7-20); Carbon Dioxide 21 mEq/L (19-29); Chloride 106 mEq/L (98-109); Glucose 219 mg/dL (70-99); Magnesium 1.3 mg/dL (1.6-2.6); Osmolality,Calculated 288 (280-300); Potassium 3.8 mEq/L (3.5-4.5); Sodium 136 mEq/L (136-145); eGFR For African Americans > 60 (> 60); eGFR For Non-African Americans > 60 (> 60)
[2017-06-23 06:16] LABS: Hemoglobin 8.1 g/dL (11.5-15.4)
[2017-06-23] MEDS ORDERED: Sennosides 8.6 MG TABLET PO SCH (09:00)
[2017-06-23] MEDS ORDERED: Aspirin Enteric Coated 325 MG Tablet PO SCH (09:00)
[2017-06-23] MEDS: Dorzolamide OPTH 10 ML BOTTLE BOTH EYES SCH ×3 (09:33→19:50)
[2017-06-23] MEDS: Magnesium Oxide 400 MG TABLET PO SCH ×2 (09:34→19:55)
[2017-06-23] MEDS: levETIRAcetam 250 MG TABLET PO SCH ×2 (09:34→19:55)
--- NOTE | 2017-06-23 11:22 | Discharge Summary ---
Date of Encounter: 06/23/17 Time of Encounter: 11:18 - Discharge Diagnosis (1) Hyperosmolar non-ketotic state in patient with type 2 diabetes mellitus Priority: Primary Status: Acute (2) Acute kidney injury Priority: Secondary Status: Resolved (3) DVT prophylaxis Priority: Secondary Status: Acute (4) Hypotension Priority: Secondary Status: Resolved Qualifiers: Hypotension type: unspecified hypotension type Qualified Code(s): I95.9 - Hypotension, unspecified (5) Anemia Priority: Secondary Status: Chronic Qualifiers: Anemia type: iron deficiency Iron deficiency anemia type: inadequate dietary iron intake Qualified Code(s): D50.8 - Other iron deficiency anemias (6) Type 2 diabetes mellitus, uncontrolled Priority: Secondary Status: Chronic Qualifiers: Diabetes mellitus complication status: with hypoglycemia Diabetes mellitus complication detail: without coma Diabetes mellitus moth exterminator insulin use: with senior care use Qualified Code(s): E11.649 - Type 2 diabetes mellitus with hypoglycemia without coma; Z79.4 - rat exterminator (current) use of insulin; Z79.4 - halfway (current) use of insulin; Z79.4 - halfway (current) use of insulin; Z79.4 - halfway (current) use of insulin - Discharge Medications Prescriptions: Aspirin Enteric Coated [Aspirin EC] 81 mg PO DAILY #30 tablet. Ferrous Sulfate 325 mg PO DAILY #30 tablet HYDROcodone/Acet 5/325 mg [[place] 5-325 mg] 1 tab PO Q6H PRN #14 tablet PRN Reason: Pain Home Medications: Insulin Glargine,Hum.rec.anlog [Lantus Solostar] 10 unit SQ DAILY 06/29/16 [ History] Insulin LISPRO [Humalog] 4 - 8 unit SQ TID PRN 06/29/16 [History] LevETIRAcetam [Roweepra] 500 mg PO BID 06/29/16 [History] Lisinopril [Zestril] 10 mg PO DAILY 06/29/16 [History] Sennosides [Senna] 8.6 mg PO DAILY 06/29/16 [History] Folic Acid 1 mg PO DAILY #30 tablet 07/02/16 [Rx] Magnesium Oxide [Mag-Ox] 400 mg PO BID #60 tablet 07/02/16 [Rx] Metoclopramide [Reglan] 10 mg PO QIDAC #30 tablet 07/02/16 [Rx] Cyclosporine [Restasis] 1 drop OP BID 09/03/16 [History] Acetaminophen [Non-Aspirin] 650 mg PO Q6H PRN 06/22/17 [History] Brimonidine 0.2% [Alphagan] 1 drop LEFT EYE TID 06/22/17 [History] Citalopram Hydrobromide [Celexa] 40 mg PO DAILY 06/22/17 [History] Docusate Sodium [Dok] 100 mg PO BID PRN 06/22/17 [History] Dorzolamide [Trusopt] 1 drop BOTH EYES TID 06/22/17 [History] Ergocalciferol (VITAMIN D2) [Vitamin D2] 50,000 unit PO QWEEK 06/22/17 [History] Glucagon,Human Recombinant [Glucagen] 1 mg IJ AD PRN 06/22/17 [History] Na Phos,M-B/Na Phos,Di-Ba [Fleet Enema Extra] 230 ml RC Q48H PRN 06/22/17 [ History] Polyvinyl Alcohol [Artificial Tears] 1 drop OP QID PRN 06/22/17 [History] Aspirin Enteric Coated [Aspirin EC] 81 mg PO DAILY #30 tablet. 06/23/17 [Rx] HYDROcodone/Acet 5/325 mg [[place] 5-325 mg] 1 tab PO Q6H PRN #14 tablet 06/23/17 [Rx] Ferrous Sulfate 325 mg PO DAILY #30 tablet 06/24/17 [Rx] Allergies/Adverse Reactions: 3 Allergy/AdvReac Type Severity Reaction Status Date / Time No Known Allergies Allergy Verified 06/29/16 07:51 Date of admission: 06/22/17 13:57 Primary care physician: Howard Boogie MD Discharging clinician: Carlin Conner Anticipated date of discharge: 06/24/17 - Patient Status Disposition: Transfer SNF Condition: Good Functional capacity at discharge: uses cane/walker Overall status at discharge: patient is progressing back to baseline - Discharge Instructions Instructions: Diabetes Mellitus Type 2 in Adults (DC) Follow Up With: Howard Boogie MD [Primary Care Provider] - (in 1-2 weeks) - Diet and Activity Activity: as per physical therapy Diet: diabetic diet, low fat, low cholesterol, low salt diet Hospital course: Ms. Moreno is a 61 year old female who resides at residential presented to the ER she has a history of insulin-dependent diabetes mellitus, hypertension, chronic kidney disease, schizophrenia and seizure disorder. On presentation to the ER, she was hypotensive. Blood pressure improved after her she was given fluids. Her blood sugar was 6:30. She was diagnosed with hyperosmolar hyperglycemic state along with acute kidney injury. No signs of infection. Her chest x-ray was negative for any infiltrate. Her urine analysis did not show any signs of UTI. She was treated with IV insulin and IV fluids with improvement in her symptoms. Her hypotension is resolved and her hyperosmolar hyperglycemic state has also resolved. This morning she is doing much better. Tolerating oral diet well. No new complaints at this time. Patient does have anemia which is chronic but has had a decrease in her hemoglobin level from 9.9 to 8.1 on 06/23/17. This is likely dilutional. Stool for occult blood was negative. Blood counts were monitored overnight and did have remained stable since. She does not have any melena or hematochezia. She had upper GI endoscopy and colonoscopy in August last year which did not show any acute abnormalities. She did have low iron levels. She will be placed on oral iron supplements. At this time she is clinically stable for discharge to retirement facility. - Time Spent with Patient Total time spent providing and/or coordinating discharge services: Less than 30 minutes (25 min) - Constitutional Vitals: Temp Pulse Resp BP Pulse Ox 97.9 F 74 16 106/54 97 06/23/17 08:39 06/23/17 08:39 06/23/17 08:39 06/23/17 08:39 06/23/17 08:39 General appearance: Present: A&O X 3, pleasant, no acute distress, answers questions appropriately - Neck Neck exam general surgery: Present: supple, trachea midline. Absent: lymphadenopathy - Respiratory Respiratory exam: Present: CTAB. Absent: accessory muscle use, rales, rhonchi, wheezes - Cardiovascular Cardiovascular exam: Present: RRR, +S1, +S2. Absent: diastolic murmur, gallop, rubs, systolic murmur - GI/Abdominal GI/Abdominal exam: Present: normal bowel sounds, soft, no peritoneal signs. Absent: distended, tenderness - Skin Skin exam: Present: dry, intact, pallor
--- NOTE | 2017-06-23 11:33 | Physician Discharge Referral ---
ExtendedCare Referral Info Provider in Charge after Transfer: PCP Institutional Level of Care: Skilled - Diagnosis (1) Hyperosmolar non-ketotic state in patient with type 2 diabetes mellitus Priority: Primary Status: Acute (2) Acute kidney injury Priority: Secondary Status: Acute (3) DVT prophylaxis Priority: Secondary Status: Acute (4) Hypotension Priority: Secondary Status: Resolved (5) Anemia Priority: Secondary Status: Chronic (6) Type 2 diabetes mellitus, uncontrolled Priority: Secondary Status: Chronic Prognosis: Fair Aware of Diagnosis: Patient Aware of Prognosis: Patient - Transfer Medications Prescriptions: Aspirin Enteric Coated [Aspirin EC] 81 mg PO DAILY #30 tablet. HYDROcodone/Acet 5/325 mg [[place] 5-325 mg] 1 tab PO Q6H PRN #14 tablet PRN Reason: Pain Home Medications: Insulin Glargine,Hum.rec.anlog [Lantus Solostar] 10 unit SQ DAILY 06/29/16 [ History] Insulin LISPRO [Humalog] 4 - 8 unit SQ TID PRN 06/29/16 [History] LevETIRAcetam [Roweepra] 500 mg PO BID 06/29/16 [History] Lisinopril [Zestril] 10 mg PO DAILY 06/29/16 [History] Sennosides [Senna] 8.6 mg PO DAILY 06/29/16 [History] Folic Acid 1 mg PO DAILY #30 tablet 07/02/16 [Rx] Magnesium Oxide [Mag-Ox] 400 mg PO BID #60 tablet 07/02/16 [Rx] Metoclopramide [Reglan] 10 mg PO QIDAC #30 tablet 07/02/16 [Rx] Cyclosporine [Restasis] 1 drop OP BID 09/03/16 [History] Acetaminophen [Non-Aspirin] 650 mg PO Q6H PRN 06/22/17 [History] Brimonidine 0.2% [Alphagan] 1 drop LEFT EYE TID 06/22/17 [History] Citalopram Hydrobromide [Celexa] 40 mg PO DAILY 06/22/17 [History] Docusate Sodium [Dok] 100 mg PO BID PRN 06/22/17 [History] Dorzolamide [Trusopt] 1 drop BOTH EYES TID 06/22/17 [History] Ergocalciferol (VITAMIN D2) [Vitamin D2] 50,000 unit PO QWEEK 06/22/17 [History] Glucagon,Human Recombinant [Glucagen] 1 mg IJ AD PRN 06/22/17 [History] Na Phos,M-B/Na Phos,Di-Ba [Fleet Enema Extra] 230 ml RC Q48H PRN 06/22/17 [ History] Polyvinyl Alcohol [Artificial Tears] 1 drop OP QID PRN 06/22/17 [History] Aspirin Enteric Coated [Aspirin EC] 81 mg PO DAILY #30 tablet.dr 06/23/17 [Rx] HYDROcodone/Acet 5/325 mg [[place] 5-325 mg] 1 tab PO Q6H PRN #14 tablet 06/23/17 [Rx] Allergies/Adverse Reactions: 3 Allergy/AdvReac Type Severity Reaction Status Date / Time No Known Allergies Allergy Verified 06/29/16 07:51 - Respiratory Orders Smoking Cessation: Smoking cessation has been advised. For more information, call the [employer] Tobacco Quit Line at 0-413-SYSX-NOW. - Ancillary Orders May consult with Dentist, [place] Neck Whipper, Director Custom PRN - Advance Directives Code Status: Full Code - Mobility Orders Other (per PT) - Rehabiliation Orders Rehab Potential: Fair Rehab Orders: Evaluation for Physical Therapy, Evaluation for Occupational Therapy - Diet Orders No Concentrated Sweets (and diabetic), Cardiac CERTIFICATION: I certify that the transfer of the above named patient to an Extended Care Facility is necessary for the continuing treatment of the diagnosis listed. The above information is true and accurate reflection of patient's current condition. Confidential - Redisclosure prohibited without a patient's written consent.
[2017-06-23 13:31] LABS: Hematocrit 23.8 % (35.3-44.9); Hemoglobin 7.9 g/dL (11.5-15.4)
[2017-06-23] MEDS: (Cyclosporine [Restasis] 1 DROP) OP SCH ×2 (17:30→19:51)
[2017-06-23] MEDS ORDERED: Ondansetron 4 MG/2 ML VIAL IVP PRN (20:38)
[2017-06-23] MEDS ORDERED: Acetaminophen 325 MG TABLET PO PRN ×2 (20:38)
[2017-06-23] MEDS ORDERED: D5% in Water 1,000 ML IVC PRN (20:38)
[2017-06-23] MEDS ORDERED: *HR* Dextrose 50 % in Water (Syg) 50 ML SYRINGE IVP PRN (20:38)
[2017-06-23] MEDS ORDERED: Dextrose Gel 15 GM PO PRN ×2 (20:38)
[2017-06-23] MEDS ORDERED: Naloxone 0.4 MG/ML INJ IVP PRN (20:38)
[2017-06-23] MEDS ORDERED: *HR* HYDROcodone/Acet 5/325 mg TABLET PO PRN (20:38)
[2017-06-23] MEDS ORDERED: Artificial Tears SOLN 15 ML BOTTLE OP PRN (20:38)
[2017-06-23] MEDS ORDERED: levETIRAcetam 250 MG TABLET PO SCH (21:00)
[2017-06-23] MEDS ORDERED: Magnesium Oxide 400 MG TABLET PO SCH (21:00)
[2017-06-23] MEDS ORDERED: Dorzolamide OPTH 10 ML BOTTLE BOTH EYES SCH (21:00)
[2017-06-23] MEDS ORDERED: RESTASIS OP SCH (21:00)
[2017-06-23] MEDS ORDERED: Insulin DETEMIR 100 UNIT/ML X5UNITS SQ SCH ×2 (21:00)
[2017-06-24 06:08] LABS: Basophils # 0.1 K/mcL (0.0-0.2); Basophils % 0.8 %; Eosinophils # 0.2 K/mcL (0.0-0.6); Eosinophils % 2.7 %; Hematocrit 25.6 % (35.3-44.9); Hemoglobin 8.3 g/dL (11.5-15.4); Immature Granulocytes % 0.3 % (0-4); Lymphocytes # 3.2 K/mcL (0.6-4.6); Lymphocytes % 35.6 %; Mean Corpuscular HGB Conc 32.4 g/dL (31.6-35.5); Mean Corpuscular Hemoglobin 28.5 pg (28.0-33.3); Monocytes # 0.6 K/mcL (0.0-1.3); Neutrophils # 4.7 K/mcL (1.6-8.9); Platelet Count 317 K/mcL (140-400); Red Blood Count 2.91 M/mcL (3.82-4.97); Red Cell Distribution Width 13.3 % (11.5-14.5); Segmented Neutrophils % 53.6 %
[2017-06-24 06:23] LABS: % Iron Saturation 13 % (15-50); Iron 35 mcg/dL (50-170); Transferrin 199 mg/dL (180-382)
[2017-06-24 06:43] LABS: Ferritin 55 ng/ml (5-204)
[2017-06-24 06:57] LABS: Folate 14.4 ng/mL (7.0-31.4)
[2017-06-24] MEDS ORDERED: Insulin LISPRO 300 UNITS/3 ML VIAL SQ SCH (07:30)
[2017-06-24] MEDS ORDERED: Folic Acid 1 MG TABLET PO SCH (09:00)
[2017-06-24] MEDS ORDERED: Sennosides 8.6 MG TABLET PO SCH (09:00)
--- NOTE | 2017-06-24 09:22 | Internal Med Progress Note ---
Date of Encounter: 06/24/17 Time of Encounter: 09:00 - Assessment and plan (1) Hyperosmolar non-ketotic state in patient with type 2 diabetes mellitus Current Visit: Yes Status: Acute Assessment and plan: Episode of hypoglycemia this morning. Will change insulin regimen and switch Levemir to a.m. dosing. Patient was asymptomatic. Clinically stable for [facility]. (2) Acute kidney injury Current Visit: Yes Status: Resolved Assessment and plan: Due to dehydration. Underlying chronic kidney disease stage II. (3) DVT prophylaxis Current Visit: Yes Status: Acute (4) Hypotension Current Visit: Yes Status: Resolved Assessment and plan: Due to dehydration Qualifiers: Hypotension type: unspecified hypotension type Qualified Code(s): I95.9 - Hypotension, unspecified (5) Anemia Current Visit: Yes Status: Chronic Assessment and plan: Chronic anemia. Hemoglobin 8.3 today. Patient has low iron levels but normal B12 and folic acid levels. Stool for occult blood was negative. Since her blood counts have stayed stabilized since yesterday, she is clinically stable for discharge. Patient had EGD and colonoscopy last year which was essentially normal. Most likely nutritional iron deficiency. Patient will be placed on oral iron replacement therapy. Qualifiers: Anemia type: iron deficiency Iron deficiency anemia type: inadequate dietary iron intake Qualified Code(s): D50.8 - Other iron deficiency anemias (6) Type 2 diabetes mellitus, uncontrolled Current Visit: Yes Status: Chronic Assessment and plan: Patient with type 2 diabetes and episode of hypoglycemia today. Improved Qualifiers: Diabetes mellitus complication status: with hypoglycemia Diabetes mellitus complication detail: without coma Diabetes mellitus residential insulin use: with technician terminal and repeater use Qualified Code(s): E11.649 - Type 2 diabetes mellitus with hypoglycemia without coma; Z79.4 - [facility] (current) use of insulin; Z79.4 - termination clerk (current) use of insulin; Z79.4 - termination clerk (current) use of insulin; Z79.4 - termination clerk (current) use of insulin - Subjective Interval history: Patient Hypoglycemic this morning. She was given orange juice with sugar and since then her blood sugars have improved. She denies any symptoms at this time. Eating breakfast. - Constitutional Vitals: Temp Pulse Resp BP Pulse Ox 98.0 F 71 15 114/73 95 06/24/17 07:48 06/24/17 07:48 06/24/17 07:48 06/24/17 07:48 06/24/17 07:48 General appearance: Present: A&O X 3, pleasant, no acute distress, answers questions appropriately - Neck Neck exam general surgery: Present: supple, trachea midline. Absent: lymphadenopathy - Respiratory Respiratory exam: Present: CTAB. Absent: accessory muscle use, rales, rhonchi, wheezes - Cardiovascular Cardiovascular exam: Present: RRR, +S1, +S2. Absent: diastolic murmur, gallop, rubs, systolic murmur - GI/Abdominal GI/Abdominal exam: Present: normal bowel sounds, soft, no peritoneal signs. Absent: distended, tenderness - Neurological Exam Neurological exam: Present: alert, oriented X3, no focal deficits. Absent: facial droop, speech deficit Internal Medicine: Result - Labs CBC & Chem 7: 06/24/17 05:07 06/23/17 05:45 Labs: Short CBC 06/23/17 06/24/17 Range/Units 11:04 05:07 WBC 8.9 (4.3-11.1) K/mcL Hgb 7.9 L 8.3 L (11.5-15.4) g/dL Hct 23.8 L 25.6 L (35.3-44.9) % Plt Count 317 (140-400) K/mcL Neutrophils # 4.7 (1.6-8.9) K/mcL Consult Discharge Plan - Plan Instructions: Diabetes Mellitus Type 2 in Adults (DC) Referrals: Howard Boogie MD [Primary Care Provider] - (in 1-2 weeks) Prescriptions: Aspirin Enteric Coated [Aspirin EC] 81 mg PO DAILY #30 tablet. Ferrous Sulfate 325 mg PO DAILY #30 tablet HYDROcodone/Acet 5/325 mg [[place] 5-325 mg] 1 tab PO Q6H PRN #14 tablet PRN Reason: Pain
[2017-06-24 12:34] VITALS: BP 146/81
--- NOTE | 2017-06-24 18:51 | Electrocardiograph Report ---
[place] [id number] Test Date: 2017-06-22 Pat Name: Valeri Moreno Department: 102 Room: 3A13 Gender: F Precipitator: Meghan : 1955 Requested By: Joe Kaplan Order Number: [id number] Reading MD: Franck Luna MD Measurements Intervals [place] Rate: 84 P: 52 RI: 180 QRS: 36 QRSD: 82 T: 41 QT: 380 QTc: 420 Interpretive Statements SINUS RHYTHM Electronically Signed On 06-24-2017 18:50:20 EDT by Franck Luna MD
[2017-06-25] MEDS ORDERED: Insulin DETEMIR 100 UNIT/ML X5UNITS SQ SCH (09:00)
== END 2017-06-24 13:35 | DRG 420 ==
LOC: EMEROO 11:52 → SUATTDRO 13:57 → 2NNU 13:57 → ICNU 14:02 → 3ANU 06-23 20:32
PROVIDERS: ADMIT Hospitalist; ATTEND Internal Medicine

== ENCOUNTER 2019-02-08 16:28 | Observation (INO) ==
--- NOTE | 2019-02-08 16:49 | Emergency Department Note ---
Disposition Clinical Impression: Hypoglycemia Hypotension Qualifiers: Hypotension type: unspecified hypotension type Qualified Code(s): I95.9 - Hypotension, unspecified Leukocytosis Qualifiers: Leukocytosis type: other Qualified Code(s): D72.828 - Other elevated white blood cell count Disposition: Admitted As Inpatient Condition: Good Time of Disposition: 19:31 General Adult HPI - General Chief complaint: ED Recheck/Abnormal Lab/Rx Stated complaint: low blood sugar Time Seen by Provider: 02/08/19 16:35 Source: patient, EMS Mode of arrival: EMS Limitations: no limitations Nursing Notes Reviewed: Yes Vital Signs Reviewed: Yes (hypotensive) - History of Present Illness HPI Narrative: Ms. Moreno is a 63 year old female with history of seiure, hx of intracranial hemorrhage, bipolar, pancreatitis, type I dm uncontrolled, and hepatitis who presents to the ED via EMS from ECF due to low blood sugar. Patient passed out and was found to have a low blood sugar, she was given 2mg of glucagon before EMS and arrival to ED. On arrival blood sugar 104. Last ate anything at noon. Patient reports she doesnot have an insulin pump and the ECF manages her insulin. Patient reprots multiple hypoglycemic episodes within the last 3-5 y ears. Endocrine note reviewe, A1C 9.0%. Patient denies headaches, changes invision orhearing, nausea, vomiting, chest pain, palpitaitons, shortness of breath, cough, abdominal pain, changes in urination, dysuira, changes in bowels, diarrhea, weakness, or rash. Pain Scale: 0 - Related Data Home Medications Medication Instructions Recorded Confirmed Insulin Glargine,Hum.rec.anlog 10 unit SQ DAILY 06/29/16 06/22/17 [Lantus Solostar] Insulin LISPRO [Humalog] 4 - 8 unit SQ TID PRN 06/29/16 06/22/17 Lisinopril [Zestril] 10 mg PO DAILY 06/29/16 06/22/17 Sennosides [Senna] 8.6 mg PO DAILY 06/29/16 06/22/17 levETIRAcetam [Roweepra] 500 mg PO BID 06/29/16 06/22/17 Cyclosporine [Restasis] 1 drop OP BID 09/03/16 06/22/17 Acetaminophen [Non-Aspirin] 650 mg PO Q6H PRN 06/22/17 06/22/17 Brimonidine 0.2% [Alphagan] 1 drop LEFT EYE TID 06/22/17 06/22/17 Citalopram Hydrobromide [Celexa] 40 mg PO DAILY 06/22/17 06/22/17 Docusate Sodium [Dok] 100 mg PO BID PRN 06/22/17 06/22/17 Dorzolamide [Trusopt] 1 drop BOTH EYES TID 06/22/17 06/22/17 Ergocalciferol (VITAMIN D2) 50,000 unit PO QWEEK 06/22/17 06/22/17 [Vitamin D2] Glucagon,Human Recombinant 1 mg IJ AD PRN 06/22/17 06/22/17 [Glucagen] Na Phos,M-B/Na Phos,Di-Ba [Fleet 230 ml RC Q48H PRN 06/22/17 06/22/17 Enema Extra] Polyvinyl Alcohol [Artificial 1 drop OP QID PRN 06/22/17 06/22/17 Tears] Previous Rx's Medication Instructions Recorded Folic Acid 1 mg PO DAILY #30 tablet 07/02/16 Magnesium Oxide [Mag-Ox] 400 mg PO BID #60 tablet 07/02/16 Metoclopramide [Reglan] 10 mg PO QIDAC #30 tablet 07/02/16 Aspirin Enteric Coated [Aspirin EC] 81 mg PO DAILY #30 tablet. 06/23/17 HYDROcodone/Acet 5/325 mg [[place] 1 tab PO Q6H PRN #14 tablet 06/23/17 5-325 mg] Ferrous Sulfate 325 mg PO DAILY #30 tablet 06/24/17 Cephalexin [Keflex] 500 mg PO BID #14 capsule 12/26/17 Allergies Allergy/AdvReac Type Severity Reaction Status Date / Time No Known Allergies Allergy Verified 06/29/16 07:51 Review of Systems: As Per HPI Past Medical History - Past Medical History Source: patient, old records reviewed Medical history: Reports: diabetes, hepatitis, hypertension, osteoporosis, seizures, other Surgical history: Reports: cholecystectomy Psychiatric history: Reports: depression, schizophrenia - Social History Smoking Status: Current every day smoker Smokeless Tobacco Status: No Alcohol use: Reports: none Drug use: Reports: none Physical Exam - General General appearance: alert, in no apparent distress - Head Head exam: atraumatic, normocephalic, normal inspection - Eye Eye exam: Present: normal appearance - ENT ENT exam: normal exam, normal oropharynx, mucous membranes moist - Neck Neck exam: Present: normal inspection, full ROM, trachea midline. Absent: tenderness, lymphadenopathy - Chest Chest inspection: Present: normal inspection, symmetric chest wall rise - Respiratory Respiratory exam: Present: normal lung sounds bilaterally. Absent: respiratory distress, wheezes - Cardiovascular Cardiovascular exam: Present: regular rate, normal rhythm, normal heart sounds - Abdominal Exam Abdominal exam: Present: soft, Non-Tender, normal bowel sounds, other (no skin changes). Absent: guarding, rigidity - Extremities Exam Extremities exam: Present: normal inspection, full ROM, normal capillary refill. Absent: tenderness, pedal edema - Back Exam Back exam: Present: normal inspection, full ROM. Absent: tenderness, CVA tenderness (R), CVA tenderness (L) - Neurological Exam Neurological exam: Present: alert, oriented X3, CN II-XII intact, reflexes normal - Psychiatric Psychiatric exam: Present: normal affect, normal mood - Skin Skin exam: Present: warm, dry, intact, normal color. Absent: rash, diaphoresis, erythema Course Vital Signs Temperature 98.3 F 02/08/19 16:32 Pulse Rate 80 02/08/19 16:32 Respiratory Rate 16 02/08/19 16:32 Blood Pressure 94/58 02/08/19 16:32 O2 Sat by Pulse Oximetry 98 02/08/19 16:32 Temperature 98.3 F 02/08/19 16:32 Pulse Rate 77 02/08/19 18:03 Respiratory Rate 16 02/08/19 18:03 Blood Pressure 94/64 02/08/19 18:03 O2 Sat by Pulse Oximetry 99 02/08/19 18:03 Oxygen Delivery Oxygen Delivery Room Air Medical Decision Making - [facility] Narrative Medical decision making narrative: 63 year old with hypoglycemic episode prior to arrival. Patient does not endorse symptoms on ros. Ddx inclkuding but not limited to uncontrolled type I diabetes, noncompliance with meds, infection including but not limited to uti, pnuemonia, ACS. Will obtain labs, imaging, and ekg. Continue monitroing teri merino. Labs returned with elevated WBC and no other findings at this time suggestive of infectious source. Will admit patient for additional evaluation and observation. Blood cultures sent. Has been hypotensive despite fluids and nontachycardic. Spoke with hospitalist 1930p, admit. - Lab Data Lab results reviewed: Yes I reviewed the patient's lab results. Lab results narrative: Laboratory Last Values WBC 22.0 K/mcL (4.3-11.1) H 02/08/19 17:12 RBC 3.70 M/mcL (3.82-4.97) L 02/08/19 17:12 Hgb 11.2 g/dL (11.5-15.4) L 02/08/19 17:12 Hct 33.6 % (35.3-44.9) L 02/08/19 17:12 MCV 90.8 fL (83.0-100.0) 02/08/19 17:12 MCH 30.3 pg (28.0-33.3) 02/08/19 17:12 MCHC 33.3 g/dL (31.6-35.5) 02/08/19 17:12 RDW 12.4 % (11.5-14.5) 02/08/19 17:12 Plt Count 243 K/mcL (140-400) 02/08/19 17:12 MPV 10.2 fL (9.4-12.4) 02/08/19 17:12 Immature Gran % 0.8 % (0-4) 02/08/19 17:12 Seg Neutrophils % 84.5 % 02/08/19 17:12 7.4 % 02/08/19 17:12 5.9 % 02/08/19 17:12 1.0 % 02/08/19 17:12 0.4 % 02/08/19 17:12 18.5 K/mcL (1.6-8.9) H 02/08/19 17:12 1.6 K/mcL (0.6-4.6) 02/08/19 17:12 1.3 K/mcL (0.0-1.3) 02/08/19 17:12 0.2 K/mcL (0.0-0.6) 02/08/19 17:12 0.1 K/mcL (0.0-0.2) 02/08/19 17:12 Sodium 136 mEq/L (136-145) 02/08/19 17:12 Potassium 3.8 mEq/L (3.5-5.1) 02/08/19 17:12 Chloride 100 mEq/L (98-107) 02/08/19 17:12 Carbon Dioxide 27 mEq/L (23-29) 02/08/19 17:12 BUN 28 mg/dL (8-23) H 02/08/19 17:12 0.98 mg/dL (0.60-1.20) 02/08/19 17:12 Est GFR ( Amer) > 60 (> 60) 02/08/19 17:12 Est GFR (Non-Af Amer) 58 (> 60) L 02/08/19 17:12 29 (6-26) H 02/08/19 17:12 Glucose 81 mg/dL (70-105) 02/08/19 17:12 287 (280-300) 02/08/19 17:12 Calcium 9.8 mg/dL (8.6-10.3) 02/08/19 17:12 0.2 mg/dL (0.3-1.0) L 02/08/19 17:12 0.0 mg/dL (0.0-0.2) 02/08/19 17:12 0.2 mg/dL (0.0-1.2) 02/08/19 17:12 AST 64 Units/L (13-39) H 02/08/19 17:12 ALT 66 Units/L (7-52) H 02/08/19 17:12 104 Units/L (34-104) 02/08/19 17:12 < 0.03 ng/mL (< 0.04) 02/08/19 17:12 7.5 g/dL (6.4-8.9) 02/08/19 17:12 4.2 g/dL (3.5-5.7) 02/08/19 17:12 3.3 g/dL (2.4-3.5) 02/08/19 17:12 1.3 (1.1-2.2) 02/08/19 17:12 Yellow (Yellow) 02/08/19 18:36 Clear (Clear) 02/08/19 18:36 5.5 pH Units (5.0-8.0) 02/08/19 18:36 Ur Specific [place] 1.018 (1.010-1.025) 02/08/19 18:36 Negative mg/dL (Neg-Trace) 02/08/19 18:36 Normal mg/dL (Normal) 02/08/19 18:36 Negative mg/dL (Negative) 02/08/19 18:36 Negative (Negative) 02/08/19 18:36 Negative (Negative) 02/08/19 18:36 Negative (Negative) 02/08/19 18:36 Normal mg/dL (Normal) 02/08/19 18:36 Ur Leukocyte Esterase Negative (Negative) 02/08/19 18:36 Ur Culture Indicated? NO (NO) 02/08/19 18:36 Result diagrams: 02/08/19 17:12 02/08/19 17:12 Lab Results 02/08/19 02/08/19 02/08/19 Range/Units 17:12 17:12 18:36 WBC 22.0 H (4.3-11.1) K/mcL RBC 3.70 L (3.82-4.97) M/mcL Hgb 11.2 L (11.5-15.4) g/dL Hct 33.6 L (35.3-44.9) % MCV 90.8 (83.0-100.0) fL MCH 30.3 (28.0-33.3) pg MCHC 33.3 (31.6-35.5) g/dL RDW 12.4 (11.5-14.5) % Plt Count 243 (140-400) K/mcL MPV 10.2 (9.4-12.4) fL Immature Gran % 0.8 (0-4) % Seg Neutrophils % 84.5 % Lymphocytes % 7.4 % Monocytes % 5.9 % Eosinophils % 1.0 % Basophils % 0.4 % Neutrophils # 18.5 H (1.6-8.9) K/mcL Lymphocytes # 1.6 (0.6-4.6) K/mcL Monocytes # 1.3 (0.0-1.3) K/mcL Eosinophils # 0.2 (0.0-0.6) K/mcL Basophils # 0.1 (0.0-0.2) K/mcL Sodium 136 (136-145) mEq/L Potassium 3.8 (3.5-5.1) mEq/L Chloride 100 (98-107) mEq/L Carbon Dioxide 27 (23-29) mEq/L BUN 28 H (8-23) mg/dL Creatinine 0.98 (0.60-1.20) mg/dL Est GFR ( Amer) > 60 (> 60) Est GFR (Non-Af Amer) 58 L (> 60) BUN/Creatinine Ratio 29 H (6-26) Glucose 81 (70-105) mg/dL Calculated Osmolality 287 (280-300) Calcium 9.8 (8.6-10.3) mg/dL Total Bilirubin 0.2 L (0.3-1.0) mg/dL Direct Bilirubin 0.0 (0.0-0.2) mg/dL Indirect Bilirubin 0.2 (0.0-1.2) mg/dL AST 64 H (13-39) Units/L ALT 66 H (7-52) Units/L Alkaline Phosphatase 104 (34-104) Units/L Troponin I < 0.03 (< 0.04) ng/mL Serum Total Protein 7.5 (6.4-8.9) g/dL Albumin 4.2 (3.5-5.7) g/dL Globulin 3.3 (2.4-3.5) g/dL Albumin/Globulin Ratio 1.3 (1.1-2.2) Urine Color Yellow (Yellow) Urine Clarity Clear (Clear) Urine pH 5.5 (5.0-8.0) pH Units Ur Specific [place] 1.018 (1.010-1.025) Urine Protein Negative (Neg-Trace) mg/dL Urine Glucose (UA) Normal (Normal) mg/dL Urine Ketones Negative (Negative) mg/dL Urine Blood Negative (Negative) Urine Nitrite Negative (Negative) Urine Bilirubin Negative (Negative) Urine Urobilinogen Normal (Normal) mg/dL Ur Leukocyte Esterase Negative (Negative) Ur Culture Indicated? NO (NO) - Radiology Data Radiology results reviewed: Yes I reviewed the patient's radiology results. Chest X-Ray 02/08/19 16:45 IMPRESSION: No acute findings. D/ / Naseem Wills MD / Naseem Wills MD Interpreting Provider: Naseem Wills MD - EKG Data EKG #1 EKG attestation: Yes I reviewed and interpreted this EKG. EKG shows normal: sinus rhythm Rate: normal Rhythm: NSR When compared to previous EKG there are: no significant changes, other (signif icant artifact in I, aVL, III) Interpretation: no acute changes Attestation Statement - Attestation Attestation: I, Reinaldo Manriquez, examined this patient and my medical decision-making was reviewed with the USER EXPERIENCE TEAM LEAD/PA/Advanced Practice Nurse/Resident Physician. I agree with the documented findings, disposition and treatment plan as described except to the extent set forth below. 63-year-old female presents emergency Department with concerns of hypotension and hypoglycemia. EMS found her with a blood sugar of 20 at the half-way facility. Patient was also hypotensive. Patient was given IV fluids and glucagon with improvement of her symptoms. She is awake and alert however she is unable to give a great history regarding her case and presentation secondary to her clinical condition. Patient has a significantly elevated white blood cell count. She will be admitted to the hospitalist for further care and evaluation
[2019-02-08] MEDS ORDERED: 0.9 % Sodium Chloride 1,000 ML ONE (16:58)
[2019-02-08 17:26] LABS: Basophils # 0.1 K/mcL (0.0-0.2); Basophils % 0.4 %; Eosinophils # 0.2 K/mcL (0.0-0.6); Hematocrit 33.6 % (35.3-44.9); Hemoglobin 11.2 g/dL (11.5-15.4); Immature Granulocytes % 0.8 % (0-4); Lymphocytes # 1.6 K/mcL (0.6-4.6); Lymphocytes % 7.4 %; Mean Corpuscular HGB Conc 33.3 g/dL (31.6-35.5); Mean Corpuscular Hemoglobin 30.3 pg (28.0-33.3); Mean Corpuscular Volume 90.8 fL (83.0-100.0); Mean Platelet Volume 10.2 fL (9.4-12.4); Monocytes # 1.3 K/mcL (0.0-1.3); Monocytes % 5.9 %; Neutrophils # 18.5 K/mcL (1.6-8.9); Platelet Count 243 K/mcL (140-400); Red Cell Distribution Width 12.4 % (11.5-14.5); Segmented Neutrophils % 84.5 %
[2019-02-08 17:48] LABS: Alanine Aminotransferase 66 Units/L (7-52); Albumin 4.2 g/dL (3.5-5.7); Albumin/Globulin Ratio 1.3 (1.1-2.2); Alkaline Phosphatase 104 Units/L (34-104); Aspartate Amino Transferase 64 Units/L (13-39); BUN/Creatinine Ratio 29 (6-26); Bilirubin,Indirect 0.2 mg/dL (0.0-1.2); Bilirubin,Total 0.2 mg/dL (0.3-1.0); Blood Urea Nitrogen 28 mg/dL (8-23); Calcium 9.8 mg/dL (8.6-10.3); Carbon Dioxide 27 mEq/L (23-29); Chloride 100 mEq/L (98-107); Globulin 3.3 g/dL (2.4-3.5); Glucose 81 mg/dL (70-105); Osmolality,Calculated 287 (280-300); Potassium 3.8 mEq/L (3.5-5.1); Sodium 136 mEq/L (136-145); Total Protein 7.5 g/dL (6.4-8.9); Troponin I < 0.03 ng/mL (< 0.04); eGFR For Non-African Americans 58 (> 60)
[2019-02-08] MEDS ORDERED: 0.9 % Sodium Chloride 1,000 ML IVC ONE (18:29)
[2019-02-08 18:46] LABS: Bilirubin,Urine Negative (Negative); Blood,Urine Negative (Negative); Clarity,Urine Clear (Clear); Color,Urine Yellow (Yellow); Glucose,Urine (UA) Normal (Normal); Ketones,Urine Negative (Negative); Leukocyte Esterase,Urine Negative (Negative); Nitrite,Urine Negative (Negative); PH,Urine 5.5 pH Units (5.0-8.0); Protein,Urine Negative (Neg-Trace); Specific Gravity,Urine 1.018 (1.010-1.025); Urobilinogen,Urine Normal (Normal)
[2019-02-08] MEDS ORDERED: Artificial Tears SOLN 15 ML BOTTLE OP PRN (20:05)
[2019-02-08] MEDS ORDERED: Acetaminophen 325 MG TABLET PO PRN (20:05)
[2019-02-08] MEDS ORDERED: *HR* HYDROcodone/Acet 5/325 mg TABLET PO PRN (20:05)
[2019-02-08] MEDS ORDERED: *HR* Dextrose 50 % in Water (Syg) 50 ML SYRINGE IVP PRN (20:08)
[2019-02-08] MEDS ORDERED: Dextrose Gel 15 GM/37.5 ML TUBE PO PRN ×2 (20:08)
[2019-02-08] MEDS ORDERED: D5% in Water 1,000 ML IVC PRN (20:08)
--- NOTE | 2019-02-08 20:27 | Internal Med History&Physical ---
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 It was later found to be 104 mg/dL. It is stated that the last time she ate was at noon. It appears she has had multiple hypoglycemic episodes over the last number of years but this has been intercalated with episodes of hyperglycemic hyperosmolar state. Her insulin doses are managed in the ECF. Arrival here she said appears to be doing well and has no complaints whatsoever. She does not recall what happened and she says she was told she passed out because of low blood sugar. She reports feeling hungry and is requesting food. Hemodynamics have been stable and lab work revealed a leukocyte count of 22 without a clear source but otherwise rest of workup was unremarkable. Vitals: Reviewed General: NAD Skin: Warm and dry. HEENT: Moist mucous membranes. No conjunctivae pallor. Neck: No lymphadenopathy. No JVD. No carotid bruits. No palpable thyroid. Chest: Normal thoracic expansion. Normal breath sounds. Clear to auscultation. Heart: Normal S1 & S2; rhythmic. No rubs or murmurs. Abdomen: Non-distended, soft and non-tender to palpation. No peritoneal reaction. Extremities: No clubbing, cyanosis or edema. No calf tenderness. Normal distal pulses. Neurological: Awake, alert and oriented to person, place and time. No focal deficits. Psych: Affect appropriate. Assessment/Plan 1. Symptomatic hypoglycemia: Has now improved. Will start D5LR overnight and q4hr glycemic checks. Diet will be started. 2. Diabetes: With peripheral complications and poorly controlled. Will start insulin protocol when glycemia is more stable. Continue eyedrops for retinopathy and metoclopramide for gastroparesis. 3. Hepatitis: Seen to be HCV reactive. Abnormal LFTs noted in comparison to her baseline. Will recheck. 4. Hypertension: On lisinopril. 5. Seizure disorder: Continue levetiracetam. Past Med Surg Social Fam HX - Past Medical History Medical history: diabetes, hepatitis, hypertension, osteoporosis, seizures, other Additional medical history: Blind Psychiatric history: depression, schizophrenia - Past Surgical History Surgical History: cholecystectomy - Social History Smoking Status: Current every day smoker Smokeless Tobacco Status: No Alcohol use: none Drug use: none Internal Medicine - H&P: Meds Insulin Glargine,Hum.rec.anlog [Lantus Solostar] 10 unit SQ DAILY 06/29/16 [History] Insulin LISPRO [Humalog] 4 - 8 unit SQ TID PRN 06/29/16 [History] Lisinopril [Zestril] 10 mg PO DAILY 06/29/16 [History] Sennosides [Senna] 8.6 mg PO DAILY 06/29/16 [History] levETIRAcetam [Roweepra] 500 mg PO BID 06/29/16 [History] Folic Acid 1 mg PO DAILY #30 tablet 07/02/16 [Rx] Magnesium Oxide [Mag-Ox] 400 mg PO BID #60 tablet 07/02/16 [Rx] Metoclopramide [Reglan] 10 mg PO QIDAC #30 tablet 07/02/16 [Rx] Cyclosporine [Restasis] 1 drop OP BID 09/03/16 [History] Acetaminophen [Non-Aspirin] 650 mg PO Q6H PRN 06/22/17 [History] Brimonidine 0.2% [Alphagan] 1 drop LEFT EYE TID 06/22/17 [History] Citalopram Hydrobromide [Celexa] 40 mg PO DAILY 06/22/17 [History] Docusate Sodium [Dok] 100 mg PO BID PRN 06/22/17 [History] Dorzolamide [Trusopt] 1 drop BOTH EYES TID 06/22/17 [History] Ergocalciferol (VITAMIN D2) [Vitamin D2] 50,000 unit PO QWEEK 06/22/17 [History] Glucagon,Human Recombinant [Glucagen] 1 mg IJ AD PRN 06/22/17 [History] Na Phos,M-B/Na Phos,Di-Ba [Fleet Enema Extra] 230 ml RC Q48H PRN 06/22/17 [History] Polyvinyl Alcohol [Artificial Tears] 1 drop OP QID PRN 06/22/17 [History] Aspirin Enteric Coated [Aspirin EC] 81 mg PO DAILY #30 tablet. 06/23/17 [Rx] HYDROcodone/Acet 5/325 mg [[place] 5-325 mg] 1 tab PO Q6H PRN #14 tablet 06/23/17 [Rx] Ferrous Sulfate 325 mg PO DAILY #30 tablet 06/24/17 [Rx] Cephalexin [Keflex] 500 mg PO BID #14 capsule 12/26/17 [Rx] Allergy/AdvReac Type Severity Reaction Status Date / Time No Known Allergies Allergy Verified 06/29/16 07:51 All Systems PM: A 10-system review of systems was performed and is negative for pertinent findings except as documented above in the HPI. Family history reviewed and found non-contributory. - Constitutional Vitals: Temp Pulse Resp BP Pulse Ox 98.3 F 73 16 129/66 99 02/08/19 16:32 02/08/19 20:03 02/08/19 18:03 02/08/19 20:03 02/08/19 20:03 General appearance: Present: A&O X 3 Exam: . Internal Med - H&P Results - Labs CBC & Chem 7: 02/08/19 17:12 02/08/19 17:12 Labs: Short CBC 02/08/19 Range/Units 17:12 WBC 22.0 H (4.3-11.1) K/mcL Hgb 11.2 L (11.5-15.4) g/dL Hct 33.6 L (35.3-44.9) % Plt Count 243 (140-400) K/mcL Neutrophils # 18.5 H (1.6-8.9) K/mcL BMP 02/08/19 17:12 Sodium 136 Potassium 3.8 Chloride 100 Carbon Dioxide 27 BUN 28 H Creatinine 0.98 Glucose 81 Calcium 9.8 Cardiac Enzymes 02/08/19 Range/Units 17:12 Troponin I < 0.03 (< 0.04) ng/mL Liver Function 02/08/19 Range/Units 17:12 Total Bilirubin 0.2 L (0.3-1.0) mg/dL Direct Bilirubin 0.0 (0.0-0.2) mg/dL AST 64 H (13-39) Units/L ALT 66 H (7-52) Units/L Alkaline Phosphatase 104 (34-104) Units/L Albumin 4.2 (3.5-5.7) g/dL Urine 02/08/19 Range/Units 18:36 Urine Color Yellow (Yellow) Urine Clarity Clear (Clear) Urine pH 5.5 (5.0-8.0) pH Units Ur Specific [place] 1.018 (1.010-1.025) Urine Protein Negative (Neg-Trace) mg/dL Urine Glucose (UA) Normal (Normal) mg/dL - Impressions ITS Impressions Chest X-Ray 02/08/19 16:45 IMPRESSION: No acute findings. D/ / Naseem Wills MD / Naseem Wills MD Interpreting Provider: Naseem Wills MD - Time Spent With Patient Total time spent is greater than 50% in coordination of care (as documented) at patient's floor/unit and/or counseling patient: Greater than 35 minutes
[2019-02-08] MEDS ORDERED: D5% in Lactated Ringers 1,000 ML IVC SCH (20:30)
[2019-02-08] MEDS ORDERED: (Cyclosporine [Restasis] 1 DROP) OP SCH (21:00)
[2019-02-08] MEDS: levETIRAcetam 250 MG TABLET PO SCH (21:48)
[2019-02-08] MEDS: Magnesium Oxide 400 MG TABLET PO SCH (21:48)
[2019-02-08] MEDS: *HR* Heparin 5,000 UNIT/ML VIAL SQ SCH (21:48)
[2019-02-08] MEDS: Dorzolamide OPTH 10 ML BOTTLE BOTH EYES SCH (21:49)
[2019-02-09] MEDS: Insulin LISPRO 300 UNITS/3 ML VIAL SQ SCH ×4 (00:24→11:47)
[2019-02-09 04:10] LABS: Basophils # 0.1 K/mcL (0.0-0.2); Basophils % 0.7 %; Eosinophils # 0.2 K/mcL (0.0-0.6); Eosinophils % 1.8 %; Hematocrit 27.4 % (35.3-44.9); Hemoglobin 9.2 g/dL (11.5-15.4); Immature Granulocytes % 0.3 % (0-4); Immature Platelets 1.9 % (1.1-6.1); Lymphocytes # 4.2 K/mcL (0.6-4.6); Lymphocytes % 34.2 %; Mean Corpuscular HGB Conc 33.6 g/dL (31.6-35.5); Mean Corpuscular Hemoglobin 30.2 pg (28.0-33.3); Mean Corpuscular Volume 89.8 fL (83.0-100.0); Mean Platelet Volume 10.6 fL (9.4-12.4); Monocytes # 0.8 K/mcL (0.0-1.3); Monocytes % 6.4 %; Platelet Count 207 K/mcL (140-400); Red Blood Count 3.05 M/mcL (3.82-4.97); Red Cell Distribution Width 12.5 % (11.5-14.5); Segmented Neutrophils % 56.6 %
[2019-02-09] MEDS: *HR* Heparin 5,000 UNIT/ML VIAL SQ SCH (04:15)
[2019-02-09 04:36] LABS: Alanine Aminotransferase 57 Units/L (7-52); Albumin 3.3 g/dL (3.5-5.7); Albumin/Globulin Ratio 1.3 (1.1-2.2); Alkaline Phosphatase 82 Units/L (34-104); Aspartate Amino Transferase 58 Units/L (13-39); BUN/Creatinine Ratio 35 (6-26); Bilirubin,Direct 0.1 mg/dL (0.0-0.2); Bilirubin,Indirect 0.2 mg/dL (0.0-1.2); Bilirubin,Total 0.3 mg/dL (0.3-1.0); Blood Urea Nitrogen 25 mg/dL (8-23); Calcium 8.6 mg/dL (8.6-10.3); Carbon Dioxide 27 mEq/L (23-29); Chloride 103 mEq/L (98-107); Globulin 2.5 g/dL (2.4-3.5); Glucose 272 mg/dL (70-105); Osmolality,Calculated 294 (280-300); Potassium 3.8 mEq/L (3.5-5.1); Sodium 135 mEq/L (136-145); Total Protein 5.8 g/dL (6.4-8.9); eGFR For Non-African Americans > 60 (> 60)
[2019-02-09] MEDS: levETIRAcetam 250 MG TABLET PO SCH (07:40)
[2019-02-09] MEDS: Magnesium Oxide 400 MG TABLET PO SCH (07:40)
[2019-02-09] MEDS: Dorzolamide OPTH 10 ML BOTTLE BOTH EYES SCH (07:41)
[2019-02-09] MEDS ORDERED: Aspirin Enteric Coated 81 MG Tablet PO SCH (09:00)
[2019-02-09] MEDS ORDERED: Sennosides 8.6 MG TABLET PO SCH (09:00)
[2019-02-09] MEDS ORDERED: Folic Acid 1 MG TABLET PO SCH (09:00)
[2019-02-09 10:42] VITALS: BP 94/60
[2019-02-09 10:52] LABS: Estimated Average Glucose 212 mg/dl
--- NOTE | 2019-02-09 13:20 | Discharge Summary ---
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 It was later found to be 104 mg/dL. She appears to have eaten her last meal at noon She was assessed with hypoglycemia possibly secondary to missed meals and monitored. Her hypoglycemia has resolved. She has been counseled regarding regular meals and insulin compliance. She also had a leukocytosis with no clear source of infection.. WBC trended down without any antibiotics. She was discharged in a stable condition Hospital course: Ms. Moreno is a 63 year old female - Time Spent with Patient Total time spent providing and/or coordinating discharge services: - Discharge Medications Prescriptions: Continued Insulin LISPRO [Humalog] 4 - 8 unit SQ TID PRN PRN Reason: sliding scale Insulin Glargine,Hum.rec.anlog [Lantus Solostar] 10 unit SQ DAILY Lisinopril [Zestril] 10 mg PO DAILY Sennosides [Senna] 8.6 mg PO DAILY levETIRAcetam [Roweepra] 500 mg PO BID Folic Acid 1 mg PO DAILY #30 tablet Magnesium Oxide [Mag-Ox] 400 mg PO BID #60 tablet Metoclopramide [Reglan] 10 mg PO QIDAC #30 tablet Cyclosporine [Restasis] 1 drop OP BID Docusate Sodium [Dok] 100 mg PO BID PRN PRN Reason: Constipation Citalopram Hydrobromide [Celexa] 40 mg PO DAILY Brimonidine 0.2% [Alphagan] 1 drop LEFT EYE TID Glucagon,Human Recombinant [Glucagen] 1 mg IJ AD PRN PRN Reason: Hypoglycemia Polyvinyl Alcohol [Artificial Tears] 1 drop OP QID PRN PRN Reason: Dry Eyes Acetaminophen [Non-Aspirin] 650 mg PO Q6H PRN PRN Reason: Pain Ergocalciferol (VITAMIN D2) [Vitamin D2] 50,000 unit PO QWEEK Dorzolamide [Trusopt] 1 drop BOTH EYES TID Na Phos,M-B/Na Phos,Di-Ba [Fleet Enema Extra] 230 ml RC Q48H PRN PRN Reason: Constipation HYDROcodone/Acet 5/325 mg [[place] 5-325 mg] 1 tab PO Q6H PRN #14 tablet PRN Reason: Pain Aspirin Enteric Coated [Aspirin EC] 81 mg PO DAILY #30 tablet. Ferrous Sulfate 325 mg PO DAILY #30 tablet Cephalexin [Keflex] 500 mg PO BID #14 capsule Home Medications: Insulin Glargine,Hum.rec.anlog [Lantus Solostar] 10 unit SQ DAILY 06/29/16 [History] Insulin LISPRO [Humalog] 4 - 8 unit SQ TID PRN 06/29/16 [History] Lisinopril [Zestril] 10 mg PO DAILY 06/29/16 [History] Sennosides [Senna] 8.6 mg PO DAILY 06/29/16 [History] levETIRAcetam [Roweepra] 500 mg PO BID 06/29/16 [History] Folic Acid 1 mg PO DAILY #30 tablet 07/02/16 [Rx] Magnesium Oxide [Mag-Ox] 400 mg PO BID #60 tablet 07/02/16 [Rx] Metoclopramide [Reglan] 10 mg PO QIDAC #30 tablet 07/02/16 [Rx] Cyclosporine [Restasis] 1 drop OP BID 09/03/16 [History] Acetaminophen [Non-Aspirin] 650 mg PO Q6H PRN 06/22/17 [History] Brimonidine 0.2% [Alphagan] 1 drop LEFT EYE TID 06/22/17 [History] Citalopram Hydrobromide [Celexa] 40 mg PO DAILY 06/22/17 [History] Docusate Sodium [Dok] 100 mg PO BID PRN 06/22/17 [History] Dorzolamide [Trusopt] 1 drop BOTH EYES TID 06/22/17 [History] Ergocalciferol (VITAMIN D2) [Vitamin D2] 50,000 unit PO QWEEK 06/22/17 [History] Glucagon,Human Recombinant [Glucagen] 1 mg IJ AD PRN 06/22/17 [History] Na Phos,M-B/Na Phos,Di-Ba [Fleet Enema Extra] 230 ml RC Q48H PRN 06/22/17 [History] Polyvinyl Alcohol [Artificial Tears] 1 drop OP QID PRN 06/22/17 [History] Aspirin Enteric Coated [Aspirin EC] 81 mg PO DAILY #30 tablet. 06/23/17 [Rx] HYDROcodone/Acet 5/325 mg [[place] 5-325 mg] 1 tab PO Q6H PRN #14 tablet 06/23/17 [Rx] Ferrous Sulfate 325 mg PO DAILY #30 tablet 06/24/17 [Rx] Cephalexin [Keflex] 500 mg PO BID #14 capsule 12/26/17 [Rx] Allergies/Adverse Reactions: Allergy/AdvReac Type Severity Reaction Status Date / Time No Known Allergies Allergy Verified 06/29/16 07:51 Date of admission: 02/08/19 20:15 Primary care physician: Howard Boogie MD Consults: 02/08/19 21:06 Consult to Disk Grinder [CONS] Routine Reason for SW Consult: from [facility], - Constitutional Vitals: Temp Pulse Resp BP Pulse Ox 97.9 F 69 15 94/60 96 02/09/19 10:30 02/09/19 10:30 02/09/19 10:30 02/09/19 10:30 02/09/19 10:30 General appearance: Present: A&O X 3 Exam: NAD - Head Head exam: Present: atraumatic, normocephalic - Eye Eye exam: Present: PERRL, conjuntiva pink, sclera anicteric Pupils: Present: PERRL - Neck Neck exam general surgery: Present: supple, trachea midline. Absent: lymphadenopathy - Respiratory Respiratory exam: Present: CTAB. Absent: accessory muscle use, rales, rhonchi, wheezes - Cardiovascular Cardiovascular exam: Present: RRR, +S1, +S2. Absent: diastolic murmur, gallop, rubs, systolic murmur - GI/Abdominal GI/Abdominal exam: Present: normal bowel sounds, soft, no peritoneal signs. Absent: distended, tenderness - Extremities Exam Extremities exam: Present: warm, radial pulses palpable and symmetrical. Absent: calf tenderness, cyanotic, pedal edema - Neurological Exam Neurological exam: Present: CN II-XII intact, oriented X3, no focal deficits. Absent: pronater drift, facial droop, speech deficit - Skin Skin exam: Present: dry, intact - Patient Status Disposition: Home, Self-Care Condition: Good - Discharge Instructions Follow Up With: Howard Boogie MD [Primary Care Provider] -
--- NOTE | 2019-02-09 13:42 | Physician Discharge Referral ---
- Diagnosis (1) Hypoglycemia Priority: Primary Status: Acute - Transfer Medications Home Medications: Insulin Glargine,Hum.rec.anlog [Lantus Solostar] 10 unit SQ DAILY 06/29/16 [History] Insulin LISPRO [Humalog] 4 - 8 unit SQ TID PRN 06/29/16 [History] Lisinopril [Zestril] 10 mg PO DAILY 06/29/16 [History] Sennosides [Senna] 8.6 mg PO DAILY 06/29/16 [History] levETIRAcetam [Roweepra] 500 mg PO BID 06/29/16 [History] Folic Acid 1 mg PO DAILY #30 tablet 07/02/16 [Rx] Magnesium Oxide [Mag-Ox] 400 mg PO BID #60 tablet 07/02/16 [Rx] Metoclopramide [Reglan] 10 mg PO QIDAC #30 tablet 07/02/16 [Rx] Cyclosporine [Restasis] 1 drop OP BID 09/03/16 [History] Acetaminophen [Non-Aspirin] 650 mg PO Q6H PRN 06/22/17 [History] Brimonidine 0.2% [Alphagan] 1 drop LEFT EYE TID 06/22/17 [History] Citalopram Hydrobromide [Celexa] 40 mg PO DAILY 06/22/17 [History] Docusate Sodium [Dok] 100 mg PO BID PRN 06/22/17 [History] Dorzolamide [Trusopt] 1 drop BOTH EYES TID 06/22/17 [History] Ergocalciferol (VITAMIN D2) [Vitamin D2] 50,000 unit PO QWEEK 06/22/17 [History] Glucagon,Human Recombinant [Glucagen] 1 mg IJ AD PRN 06/22/17 [History] Na Phos,M-B/Na Phos,Di-Ba [Fleet Enema Extra] 230 ml RC Q48H PRN 06/22/17 [History] Polyvinyl Alcohol [Artificial Tears] 1 drop OP QID PRN 06/22/17 [History] Aspirin Enteric Coated [Aspirin EC] 81 mg PO DAILY #30 tablet. 06/23/17 [Rx] HYDROcodone/Acet 5/325 mg [[place] 5-325 mg] 1 tab PO Q6H PRN #14 tablet 06/23/17 [Rx] Ferrous Sulfate 325 mg PO DAILY #30 tablet 06/24/17 [Rx] Cephalexin [Keflex] 500 mg PO BID #14 capsule 12/26/17 [Rx] Allergies/Adverse Reactions: Allergy/AdvReac Type Severity Reaction Status Date / Time No Known Allergies Allergy Verified 06/29/16 07:51 - Respiratory Orders Smoking Cessation: Smoking cessation has been advised. For more information, call the [place] Tobacco Quit Line at 6-797-ZGXP-NOW. - Mobility Orders Ambulate - Diet Orders Cardiac CERTIFICATION: I certify that the transfer of the above named patient to an Extended Care Facility is necessary for the continuing treatment of the diagnosis listed. The above information is true and accurate reflection of patient's current condition. Confidential - Redisclosure prohibited without a patient's written consent.
--- NOTE | 2019-02-10 22:51 | Electrocardiograph Report ---
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
== END 2019-02-09 14:19 ==
LOC: 3ANU 16:28 → EMEROOARM 16:28 → 3ANU 20:28
PROVIDERS: ADMIT Internal Medicine; ATTEND Internal Medicine